=== PATIENT | male | born 1930 | race Caucasian/White ===

== ENCOUNTER 2018-02-11 12:07 | Emergency (ER) | payer OTHER ==
[~2018-02-11] VITALS: Ht 175.3 cm; Wt 77.1 kg
--- NOTE | 2018-02-11 12:45 | ED INFLUENZA/URI COMPLAINT ---
History of Present Illness General Chief Complaint: General Adult Stated Complaint: DIAGNOIS WITH FLU AND PNEUMONIA SOB URI Source: patient, family, old records Exam Limitations: no limitations Vital Signs & Intake/Output Vital Signs & Intake/Output Vital Signs Date Time Temp Pulse Resp B/P B/P Pulse O2 O2 Flow FiO2 Mean Ox Delivery Rate 02/11 1351 98.0 66 20 111/55 98 Room Air 02/11 1239 98.1 66 20 119/58 95 Room Air Allergies Coded Allergies: NO KNOWN ALLERGIES (07/19/12) Triage Note: PT TO ER S/P RECENT D/C FROM [facility] W/ HX OF ASP PNA AND PARAINFLUENZA. SYMPTOMS CONTINUE. ON AUGMENTIN. Triage Nurses Notes Reviewed? yes HPI: 87M PMH esophagitis with stricture status post dilation, Helicobacter pylori, skin cancer and hiatal hernia, discharged one day ago from [facility] after being treated for pneumonia, returns today because he has worsened since his discharge. Reports dyspnea with minimal exertion, productive cough with thick green sputum, malaise, weakness. He has chronic diarrhea for years which is unchanged. He denies fever or chills, but was diaphoretic last night. He denies headache, sore throat, sinus congestion, chest pain, dysuria. He was discharged on antibiotics but is unsure of which ones. He has never smoked. Past History Travel History Traveled to [place] past 21 day No Medical History Any Pertinent Medical History? see below for history Respiratory: pneumonia Gastrointestinal: CHRONIC DIARRHEA Cancer(s): SKIN CANCER BLOOD CANCER Influenza Vaccine: 07/18/12 Surgical History Surgical History: non-contributory Psychosocial History Who do you live with Spouse Services at Home None What is your primary language Singaporean Tobacco Use: Quit >30 days ago Family History Hx Contributory? No Review of Systems Review of Systems Constitutional: Reports: no symptoms. EENTM: Reports: no symptoms. Respiratory: Reports: no symptoms. Cardiovascular: Reports: no symptoms. GI: Reports: no symptoms. Genitourinary: Reports: no symptoms. Musculoskeletal: Reports: no symptoms. Skin: Reports: no symptoms. Neurological/Psychological: Reports: no symptoms. Hematologic/Endocrine: Reports: no symptoms. Immunologic/Allergic: Reports: no symptoms. All Other Systems: Reviewed and Negative Physical Exam Physical Exam General Appearance: well developed/nourished, mild distress Head: atraumatic, normal appearance Eyes: Bilateral: normal appearance. Ears, Nose, Throat: moist mucous membrane, hearing grossly normal Neck: normal inspection, supple, full range of motion Respiratory: bilateral rhonchi, L>R Cardiovascular: regular rate/rhythm Gastrointestinal: soft, non-tender Back: normal inspection, normal range of motion Extremities: normal inspection, normal range of motion Neurologic/Psych: awake, alert, oriented x 3, normal mood/affect Skin: intact, normal color, warm/dry Core Measures Sepsis Present: No Sepsis Focused Exam Completed? No Progress Differential Diagnosis: influenza, meningitis, neutropenia, otitis, pneumonia, pharyngitis, sinusitis Plan of Care: Orders Procedure Date/time Status RAPID VIRAL INFLUENZA A 02/11 1245 Complete COMPREHENSIVE METABOLIC PANEL 02/11 1245 Complete CBC WITHOUT DIFFERENTIAL 02/11 1245 Complete EKG 02/11 1211 Active Laboratory Tests 02/11/18 1307: Anion Gap 11, Estimated GFR 48 L, BUN/Creatinine Ratio 17.9, Glucose 96, Calcium 8.5, Total Bilirubin 0.4, AST 13 L, ALT 28, Alkaline Phosphatase 85, Total Protein 5.5 L, Albumin 2.7 L, Globulin 2.8, Albumin/Globulin Ratio 1.0 L, CBC w Diff NO MAN DIFF REQ, RBC 2.79 L, MCV 93.5, MCH 31.0, MCHC 33.2, RDW 15.9 H, MPV 7.9, Gran % 74.5, Lymphocytes % 15.6 L, Monocytes % 7.7, Eosinophils % 1.9, Basophils % 0.3, Absolute Granulocytes 4.7, Absolute Lymphocytes 1.0 L, Absolute Monocytes 0.5, Absolute Eosinophils 0.1, Absolute Basophils 0 Microbiology 02/11 1301 NASOPHARYN: Influenza Virus A & B Rapid Smear - COMP Diagnostic Imaging: Viewed by Me: Radiology Read. Discussed w/RAD: Radiology Read. Radiology Impression: PATIENT: KELLIE ISAACS PRESENT AGE: 87 PATIENT ACCOUNT NO: [id number] : [birth year] LOCATION: [facility] ORDERING PHYSICIAN: Geovanny Mejia MD SERVICE DATE: 02/11/18-1245 EXAM TYPE: RAD - XRY-CHEST XRAY, TWO VIEWS EXAMINATION: XR CHEST CLINICAL INFORMATION: Bilateral rhonchi, worse in left lower lobe. COMPARISON: Chest radiograph 01/04/2017. TECHNIQUE: 2 views of the chest were obtained. FINDINGS: Minimal patchy opacity in the left lung base. The lungs are otherwise clear. No pleural effusion. Cardiomediastinal silhouette and pulmonary vasculature are within normal limits. There are atherosclerotic changes of the thoracic aorta and degenerative changes of the visualized spine. IMPRESSION: Minimal patchy left lung base airspace opacity, nonspecific. May represent mild atelectasis or early infiltrate. Correlate clinically. DICTATED BY: Aroldo Kulkarni MD DATE/TIME DICTATED:1442 ARBOREAL SCIENTIST:AISSATOU DATE/TIME TRANSCRIBED:02/11/181442 CONFIDENTIAL, DO NOT COPY WITHOUT APPROPRIATE AUTHORIZATION. <Electronically signed in Other Vendor System> SIGNED BY: Aroldo Kulkarni MD 02/11/18 3501 Initial ED EKG: normal sinus rhythm, no ST T wave changes Departure Departure Disposition: HOME OR SELF CARE Condition: Stable Clinical Impression Primary Impression: Pneumonia Referrals: Wei GAO,Teja Calderón (PCP/Family) Additional Instructions: Follow up with your PCP. Drink plenty of water. Finish taking the antibiotics that you were prescribed on discharge. If any new or worsneing symptoms, return to ER. Departure Forms: Customer Survey General Discharge Information
[2018-02-11 13:15] LABS: ABSOLUTE BASOPHIL COUNT 0 /CUMM (0.0-0.2); ABSOLUTE EOSINOPHIL COUNT 0.1 /CUMM (0.0-0.7); ABSOLUTE GRANULOCYTE CT 4.7 /CUMM (1.4-6.5); ABSOLUTE MONOCYTE COUNT 0.5 /CUMM (0.10-0.60); BASOPHIL % 0.3 % (0.0-2.0); EOSINOPHIL % 1.9 % (0-5); GRANULOCYTE % 74.5 % (42.2-75.2); HEMATOCRIT 26.1 % (42-52); MEAN CORPUSCULAR HGB CONC 33.2 G/DL (33.0-37.0); MEAN CORPUSCULAR VOLUME 93.5 FL (80.0-94.0); MEAN PLATELET VOLUME 7.9 FL (7.4-10.4); PLATELET COUNT 149 /CUMM (130-400); RBC DISTRIBUTION WIDTH 15.9 % (11.5-14.5); RED BLOOD CELL CT 2.79 /CUMM (4.70-6.10); WHITE BLOOD CELL COUNT 6.3 /CUMM (4.8-10.8)
--- NOTE | 2018-02-11 14:49 | RADIOLOGY REPORT ---
EXAMINATION: XR CHEST CLINICAL INFORMATION: Bilateral rhonchi, worse in left lower lobe. COMPARISON: Chest radiograph 01/04/2017. TECHNIQUE: 2 views of the chest were obtained. FINDINGS: Minimal patchy opacity in the left lung base. The lungs are otherwise clear. No pleural effusion. Cardiomediastinal silhouette and pulmonary vasculature are within normal limits. There are atherosclerotic changes of the thoracic aorta and degenerative changes of the visualized spine. IMPRESSION: Minimal patchy left lung base airspace opacity, nonspecific. May represent mild atelectasis or early infiltrate. Correlate clinically.
[2018-02-11 16:14] VITALS: BP 132/61
[2018-06-29] MEDS ORDERED: DOCUSATE SODIU100 M3 PO (08:38)
[2018-06-29] MEDS ORDERED: AZITHROMYCIN500 M3 PO ×2 (10:40→14:09)
== END 2018-02-11 16:16 ==
LOC: ERH 12:07
PROVIDERS: Internal Medicine
DX: J18.9 Pneumonia, unspecified organism (principal); Z87.891 Personal history of nicotine dependence
CPT/HCPCS: 71046; 87804; 87804-59; 93005; 93010

== ENCOUNTER 2018-05-11 15:39 | Inpatient (IN) | payer OTHER ==
[~2018-05-11] VITALS: Ht 167.6 cm; Wt 79.8 kg
[2018-05-11 16:23] LABS: ABSOLUTE BASOPHIL COUNT 0 /CUMM (0.0-0.2); ABSOLUTE EOSINOPHIL COUNT 0.1 /CUMM (0.0-0.7); ABSOLUTE MONOCYTE COUNT 0.3 /CUMM (0.10-0.60); BASOPHIL % 0.3 % (0.0-2.0); EOSINOPHIL % 1.4 % (0-5); GRANULOCYTE % 74.5 % (42.2-75.2); HEMATOCRIT 29.8 % (42-52); MEAN CORPUSCULAR HGB CONC 34.2 G/DL (33.0-37.0); MEAN CORPUSCULAR VOLUME 90.6 FL (80.0-94.0); MEAN PLATELET VOLUME 8.4 FL (7.4-10.4); PLATELET COUNT 173 /CUMM (130-400); RBC DISTRIBUTION WIDTH 14.4 % (11.5-14.5); RED BLOOD CELL CT 3.29 /CUMM (4.70-6.10); WHITE BLOOD CELL COUNT 5.4 /CUMM (4.8-10.8)
--- NOTE | 2018-05-11 17:10 | RADIOLOGY REPORT ---
EXAMINATION: XR PORTABLE CHEST CLINICAL INFORMATION: Fever. COMPARISON: Chest x-ray 02/11/2018 TECHNIQUE: Portable frontal view of the chest was obtained. 4:15 PM FINDINGS: There is bibasilar hazy and patchy airspace disease that is new since prior exam. Airspace disease is worse at the left lung base than the right. Lung volume is low. No significant central pulmonary vascular congestion allowing for the low inspiration. IMPRESSION: Bibasilar airspace disease, greater on the left than the right.
--- NOTE | 2018-05-11 17:43 | History & Physical ---
General Information and HPI Allergies/Medications Allergies: Coded Allergies: NSAIDS (Non-Steroidal Anti-Inflamma (PER PT DAUGHTER BAD KIDNEY 05/11/18) Past History Travel History Traveled to [place] past 21 day No Medical History Respiratory: pneumonia Gastrointestinal: CHRONIC DIARRHEA Cancer(s): SKIN CANCER BLOOD CANCER Surgical History Surgical History: non-contributory Past Family/Social History Psychosocial History Services at Home: None Core Measures/Misc (07/03) Sepsis (View protocol) If YES complete Sepsis Event Note If YES complete Sepsis Event Note
--- NOTE | 2018-05-11 17:54 | ED AMS/SEIZURE/WEAK/DIZZY ---
History of Present Illness General Chief Complaint: Nausea, Vomiting, Diarrhea Stated Complaint: BIBA WITH NAUSEA AND VOMITING Source: patient, family, old records Exam Limitations: clinical condition Vital Signs & Intake/Output Vital Signs & Intake/Output Vital Signs Date Time Temp Pulse Resp B/P B/P Pulse O2 O2 Flow FiO2 Mean Ox Delivery Rate 05/13 0000 93 Room Air 05/13 0000 97.9 60 18 108/50 93 Room Air 05/12 2000 Room Air 05/12 1600 98 Room Air 05/12 1600 97.0 66 19 110/58 98 Room Air 05/12 1200 97.5 78 18 100/46 98 Room Air 05/12 1036 Room Air Room Air ED Intake and Output 05/13 0000 05/12 1200 Intake Total 1662 Output Total 1075 200 Balance 587 -200 Intake, Blood 377 Product Intake, IV 325 Intake, Oral 960 Number 1 Bowel Movements Output, Urine 1075 200 Patient 176 lb Weight Weight Bed scale Measurement Method Allergies Coded Allergies: NSAIDS (Non-Steroidal Anti-Inflamma (PER PT DAUGHTER BAD KIDNEY 05/11/18) Triage Note: PT BIBA FROM HOME FOR N/V FOR 4 HOURS. FAMILY STATES HE HAS BEEN WEAK AND A POOR APPETITE FOR A MONTH. PT ARRIVES ALERT AND ORIENTED. DENIES PAIN, STATES HE FEELS COLD. SKIN HOT TO THE TOUCH. MOUTH IS VERY DRY. PT DOES NOT APPEAR TO BE IN RESPIRTORY DISTRESS Triage Nurses Notes Reviewed? yes Onset: Abrupt Duration: day(s): Timing: recent history HPI: 79-year-old male comes into the emergency room with nausea vomiting fever and increased weakness going on the last couple days. Patient lives at home with his daughter. He is been unable to ambulate. History of pneumonia and UTIs. Denies any pain. Denies any shortness of breath. Nothing seems to make the symptoms better or worse. Comes in for further evaluation. (Santos Malloy) Reconcile Medications Acetaminophen 500 MG TABLET 2 TAB PO QPM PAIN (Reported) Albuterol Sulfate (Proair Hfa) 90 MCG HFA.AER.AD 2 PUF INH Q6H PRN RESP. ( Reported) Furosemide (Lasix) 40 MG TABLET 1 TAB PO QAM DIURETIC (Reported) Loperamide HCl (Loperamide) 2 MG CAPSULE 1 CAP PO Q6 PRN DIARRHEA (Reported) Mirtazapine 7.5 MG TABLET 0.5 TAB PO QPM UNKNOWN (Reported) Pantoprazole Sodium 40 MG TABLET.DR 1 TAB PO DAILY GI (Reported) Potassium Chloride 10 MEQ TAB.ER.PRT 1 TAB PO DAILY SUPPLEMENT (Reported) Prednisone 10 MG TABLET 1 TAB PO QAM STEROID (Reported) Tamsulosin HCl (Flomax) 0.4 MG CAP.ER.24H 1 CAP PO QPM (Reported) (Ale GAO,[facility]) Past History Travel History Traveled to [place] past 21 day No Medical History Any Pertinent Medical History? see below for history Respiratory: pneumonia Gastrointestinal: CHRONIC DIARRHEA Cancer(s): SKIN CANCER BLOOD CANCER Surgical History Surgical History: non-contributory Psychosocial History Who do you live with Spouse Services at Home None What is your primary language Mongolian Tobacco Use: Never used Family History Hx Contributory? No (Santos Malloy) Review of Systems Review of Systems Constitutional: Reports: see HPI. EENTM: Reports: no symptoms. Respiratory: Reports: see HPI. Cardiovascular: Reports: no symptoms. GI: Reports: see HPI. Genitourinary: Reports: see HPI. Musculoskeletal: Reports: no symptoms. Skin: Reports: no symptoms. Neurological/Psychological: Reports: no symptoms. Hematologic/Endocrine: Reports: no symptoms. Immunologic/Allergic: Reports: no symptoms. All Other Systems: Reviewed and Negative (Santos Malloy) Physical Exam Physical Exam General Appearance: alert, moderate distress Head: atraumatic Eyes: Bilateral: normal appearance. Ears, Nose, Throat: normal ENT inspection, hearing grossly normal Neck: normal inspection Respiratory: no respiratory distress Cardiovascular: regular rate/rhythm, tachycardia Gastrointestinal: soft Back: decreased range of motion Extremities: no edema Neurologic/Psych: awake, alert Skin: intact Core Measures ACS in differential dx? No CVA/TIA Diagnosis No Sepsis Present: Yes Sepsis Focused Exam Completed? Yes (Santos Malloy) ED Sepsis Exam Date of Focused Sepsis Exam: 05/11/18 Time of Focused Sepsis Exam: 1700 Sepsis Cardiac Exam: Tachycardia Sepsis Resp Exam: CTA Sepsis Cap Refill Exam: <2 Sec Sepsis Peripheral Pulse Exam: Normal Sepsis Peripheral Pulse Location: Radial Sepsis Skin Color Exam: Normal for Ethnicity Skin Temp/Moisture Exam: Warm/Dry (Santos Malloy) Progress Differential Diagnosis: anemia, dehydration, postural hypotension, sepsis, UTI/ pyelo, cholecystitis, cholangitis, Plan of Care: Orders Procedure Date/time Status ICU LAB BUNDLE 05/13 0500 Complete CBC WITHOUT DIFFERENTIAL 05/13 0500 Complete Regular Diet 05/12 L Active BLOOD PRODUCT PICKUP 05/12 1539 Active LEUKOCYTE POOR (PACKED CELLS) 05/12 1451 Active CBC WITHOUT DIFFERENTIAL 05/12 1300 Complete RT: Evaluation 05/12 1034 Active Wound Care/Dressing 05/12 0858 Active THERAPIST ORDERS 05/12 UNK Complete Therapeutic Activities 05/12 UNK Complete PT EVAL LOW COMPLEX 20 MIN 05/12 UNK Complete Gait Training 05/12 UNK Complete Lab Add-on Test 05/12 UNK Active PHARMACY COMMUNICATION FORM 05/12 UNK Active Current Medications Sig/Hilton Start time Last Medication Dose Stop Time Status Admin Magnesium Sulfate 1 GM Q2H 05/13 0700 AC (Mag Sulfate in D5) 05/13 0959 Dextrose/Water 100 ML (D5W) Potassium Chloride 10 MEQ ONCE ONE 05/13 0700 CAN 05/13 0701 Azithromycin 500 MG 1800 05/12 1800 CAN (Zithromax) Sodium Chloride 250 ML (Normal Saline 0.9%) Azithromycin 500 MG 1800 05/12 1800 AC 05/12 (Zithromax) 1919 Ceftriaxone Sodium 1,000 MG 1800 05/12 1800 AC 05/12 (Rocephin) 1919 Hydrocortisone 50 MG Q8 05/12 1400 AC 05/13 Sodium Succinate 0534 (Solucortef) Ceftriaxone Sodium 1,000 MG DAILY 05/12 1040 CAN (Rocephin) Acetaminophen 1,000 MG Q6P PRN 05/11 2359 AC (Ofirmev) Heparin Sodium 5,000 UNIT Q8 05/11 2200 AC 05/13 (Porcine) 0536 Acetaminophen 650 MG Q6P PRN 05/11 1915 AC 05/12 (Tylenol) 0128 Laboratory Tests 05/13/18 0445: Anion Gap 10, Estimated GFR 52 L, Glucose 147 H, Calcium 8.9, Phosphorus 4.7 H, Magnesium 1.5 L, Total Bilirubin 0.2, AST 14 L, ALT 28, Albumin 2.4 L, CBC w Diff NO MAN DIFF REQ, RBC 2.64 L, MCV 91.3, MCH 30.4, MCHC 33.3, RDW 14.5, MPV 9.0, Gran % 75.2, Lymphocytes % 19.4 L, Monocytes % 5.1, Eosinophils % 0.1, Basophils % 0.2, Absolute Granulocytes 4.6, Absolute Lymphocytes 1.2, Absolute Monocytes 0.3, Absolute Eosinophils 0, Absolute Basophils 0 05/12/18 1340: CBC w Diff NO MAN DIFF REQ, RBC 2.41 L, MCV 91.1, MCH 31.0, MCHC 34.1, RDW 14.3 , MPV 8.3, Gran % 85.1 H, Lymphocytes % 11.8 L, Monocytes % 2.6, Eosinophils % 0.2, Basophils % 0.3, Absolute Granulocytes 5.8, Absolute Lymphocytes 0.8 L, Absolute Monocytes 0.2, Absolute Eosinophils 0, Absolute Basophils 0 Diagnostic Imaging: Viewed by Me: Radiology Read. Discussed w/RAD: Radiology Read. Radiology Impression: PATIENT: KELLIE ISAACS PRESENT AGE: 87 PATIENT ACCOUNT NO: [id number] : [birth year] LOCATION: [facility] ORDERING PHYSICIAN: Santos BAKER SERVICE DATE: 05/11/18 EXAM TYPE: RAD - XRY-PORTABLE CHEST XRAY EXAMINATION: XR PORTABLE CHEST CLINICAL INFORMATION: Fever. COMPARISON: Chest x-ray 02/11/2018 TECHNIQUE: Portable frontal view of the chest was obtained. 4:15 PM FINDINGS: There is bibasilar hazy and patchy airspace disease that is new since prior exam. Airspace disease is worse at the left lung base than the right. Lung volume is low. No significant central pulmonary vascular congestion allowing for the low inspiration. IMPRESSION: Bibasilar airspace disease, greater on the left than the right. DICTATED BY: Mono Sweeney MD DATE/TIME DICTATED:05/11/181704 ADVERTISING OPERATIONS MANAGER:AISSATOU DATE/TIME TRANSCRIBED:05/11/181704 CONFIDENTIAL, DO NOT COPY WITHOUT APPROPRIATE AUTHORIZATION. <Electronically signed in Other Vendor System> SIGNED BY: Mono Sweeney MD 05/11/181709 Initial ED EKG: normal sinus rhythm, rate (125), RBBB, nonspecific ST T wave chg (Santos Malloy) Departure Departure Disposition: STILL A PATIENT Condition: Stable Clinical Impression Primary Impression: Sepsis Secondary Impressions: Bilateral pneumonia, UTI (urinary tract infection) Referrals: Ely Arenas MD (PCP/Family) Departure Forms: Customer Survey General Discharge Information Admission Note Spoke With: Jarrett GAO,Balbir Documentation of Exam: Documentation of any treatments & extenuating circumstances including Concerns Regarding Discharge (functional status, medication knowledge or non-compliance, living conditions, etc.) that warrant an admission rather than observation: Patient will require IV antibiotics. IV fluids. Repeat labs. Medically not safe for discharge. (Santos Malloy) PA/ROD FILLER Co-Sign Statement Statement: ED Attending supervision documentation- [] I saw and evaluated the patient. I have also reviewed all the pertinent lab results and diagnostic results. I agree with the findings and the plan of care as documented in the PA's/ROD FILLER's documentation. [x] I have reviewed the ED Record and agree with the PA's/ROD FILLER's documentation. [] Additions or exceptions (if any) to the PAs/ROD FILLER's note and plan are summarized below: [] (Ale GAO,Vincent) Critical Care Note Critical Care Note Critical Care Time: 30-74 min (45) (Santos Malloy)
--- NOTE | 2018-05-11 17:59 | CT SCAN REPORT ---
EXAMINATION: CT ABDOMEN AND PELVIS WITHOUT CONTRAST CLINICAL INFORMATION: Abdominal pain. Evaluate for cholecystitis. Fever. White stool. COMPARISON: 08/01/2016 TECHNIQUE: Multidetector volumetric imaging was performed from the superior aspect of the liver through the pubic symphysis. Sagittal and coronal reformatted images were obtained on the technologist's workstation. DLP: 390 mGy-cm FINDINGS: LUNG BASES: Chronic subpleural reticular opacity in lung bases. New patchy groundglass opacity and consolidation within lower lobes, consistent with pneumonia. Patchy centrilobular groundglass opacity also observed within the middle lobe and inferior lingula. No pleural effusion. Chronically enlarged retrocrural lymph nodes are seen. Within the visualized lower mediastinum, largest right-sided para-aortic lymph node located posterior to the distal esophagus is 2 cm AP dimension, unchanged in size compared to 08/01/2016. LIVER, GALLBLADDER, AND BILIARY TREE: Liver has normal size, contour and attenuation. At the lateral aspect of hepatic segment 2, there is a 1.4 cm area that has low attenuation within the range of water, suggestive of cyst. No suspicious hepatic lesion or intrahepatic bile duct dilatation. Gallbladder is unremarkable. PANCREAS: No focal lesions within the atrophied pancreas. No pancreatic ductal dilatation. SPLEEN: Unremarkable. ADRENAL GLANDS: Unremarkable. KIDNEYS, URETERS AND BLADDER: Moderate right hydroureteronephrosis with perinephric and periureteral edema. The right ureteral stent is in satisfactory position with proximal loop located in the renal pelvis and distal loop within the urinary bladder. Gas is present in the lumen of the bladder, right ureter and renal pelvis. This could be secondary to recent placement of the ureteral stent. However, infection of the urinary tract is not excluded. No right ureteral calculus. Small, 0.3 cm calculus within the upper pole of the right kidney. Few cortical cysts of the right kidney, largest measuring up to 4.3 cm. There are clustered cysts (or single, septated cyst) at the mid to upper pole of the left kidney. Several calyceal stones of the left kidney, largest of the lower pole measuring up to 0.6 cm. The left ureter is grossly unremarkable. Within the bladder, there appears to be some faintly visible calcification around the tip of the ureteral stent. GASTROINTESTINAL TRACT: Stomach is unremarkable. The fluid-filled duodenum and proximal jejunum is dilated up to 6 cm diameter. This represents a chronic finding, not appreciably changed compared to 08/01/2016. Otherwise, small and large bowel are normal in caliber. Colonic diverticulosis without diverticulitis. No abdominal abscess, ascites or pneumoperitoneum. ABDOMINAL WALL: Small fat-containing umbilical hernia. LYMPH NODES: Chronically enlarged retrocrural lymph nodes (as noted above). Multiple small lymph nodes are seen in the retroperitoneum, largest measuring up to 1 cm short axis dimension, unchanged compared to 08/01/2016. Also, there are multiple small lymph nodes of the iliac chains. No enlarging lymph nodes compared to 08/01/2016. VASCULAR: Atherosclerosis of abdominal aorta without aneurysm. PELVIC VISCERA: Prostate gland is mildly enlarged. No pelvic free fluid. 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 No aggressive osseous lesions. IMPRESSION: 1. Multilobar pneumonia in the visualized lung bases; no pleural effusion. 2. Chronic, stable lymphadenopathy in the retrocrural region of the lower chest. Also, mild, shotty lymphadenopathy in the abdomen and pelvis remains unchanged compared to 08/01/2016. 3. Colonic diverticulosis without diverticulitis. 4. The duodenum and proximal jejunum are chronically dilated; the lack of any significant interval change compared to 08/01/2016 suggests that this is likely a chronic, asymptomatic finding. 5. Moderate right hydroureteronephrosis with perinephric and periureteral edema. Gas is seen within the right renal pelvis, ureter and bladder. Urinary tract infection is not excluded on this test. Recommend correlation with regards to the chronicity of the right hydronephrosis and the date of stent insertion. Small nonobstructing bilateral renal calculi are seen.
--- NOTE | 2018-05-11 18:06 | History & Physical ---
Ej Stafford 05/11/18 1805: General Information and HPI MD Statement: I have seen and personally examined KELLIE VINCENT and documented this H&P. The patient is a 87 year old M who presented with a patient stated chief complaint of [high fever + chills]. Source of Information: patient Exam Limitations: poor historian History of Present Illness: Mr. Vincent is in 87-year-old male with a past medical history of esophagitis with strictures, H pylori, melanoma, Commerce Rao's macroglobulinemia, hiatal hernia who presents today with a fever of 104.0. Patient denies complaints, poor historian. States to talk to his daughter for most of history. Per patient around 11 AM, he was sitting on the toilet bowl when he experienced diarrhea, nonbloody, and began having chills and felt weak. Patient states that his son- in-law picked him up off the toilet, and carried him into his living room, where they called EMS. Patient denied any other complaints today. Patient does recently admit to a 30 pound weight loss, per daughter/chart review 60 pound weight loss over 5 months. States that he was recently in the [facility] and discharged 2 weeks ago for lower extremity swelling. States that he had seen a application security architect/oncologist in the past but does not remember what for. States that most of his doctors are at the [facility] now. Does deny blurred vision, syncope, falls , chest pain, abdominal pain, nausea, vomiting, urinary symptoms, current lower extremity edema. Past medical history: Esophagitis with strictures, H pylori, melanoma, Waldenstr Allergies: Denies Social history: States significant smoking history "back in the service" reminisced about buying a carton of cigarettes for $2, and states that he has quit. States he drinks a beer every once in a while. Denies any illicit drug use. Is a of the [employer]. 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 Review of systems Positive for: 60 pound weight loss over the past 5 months, diarrhea, weakness, chills Negative for: Dizziness, falls, blurred vision, chest pain, palpitations, abdominal pain, nausea, vomiting, urinary symptoms, lower extremity edema Allergies/Medications Allergies: Coded Allergies: NSAIDS (Non-Steroidal Anti-Inflamma (PER PT DAUGHTER BAD KIDNEY 05/11/18) Past History Travel History Traveled to [place] past 21 day No Medical History Respiratory: pneumonia Gastrointestinal: CHRONIC DIARRHEA Cancer(s): SKIN CANCER BLOOD CANCER Surgical History Surgical History: non-contributory Past Family/Social History Psychosocial History Services at Home: None Functional Ability Ambulation: independent, cane (when outside house) Review of Systems Review of Systems Constitutional: Reports: see HPI. Exam & Diagnostic Data Last 24 Hrs of Vital Signs/I&O Vital Signs Date Time Temp Pulse Resp B/P B/P Pulse O2 O2 Flow FiO2 Mean Ox Delivery Rate 05/11 2003 100.7 95 20 92/54 95 Room Air Room Air 05/11 1904 102.2 94 18 104/52 95 Room Air Room Air 05/11 1703 103 18 108/47 94 Room Air Room Air 05/11 1657 103.5 05/11 1630 104.0 05/11 1630 94 Room Air Room Air 05/11 1610 120 20 148/80 94 Room Air Room Air Physical Exam General Appearance Alert, Oriented X3, Cooperative, No Acute Distress Skin 2x2cm lesion L cheek, 2x2cm lesion L chest wall present for "few months", chronic venous changes, b/l LE Skin Temp/Moisture Exam: Warm/Dry Sepsis Skin Exam (color): Normal for Ethnicity Cardiovascular Regular Rate, Normal S1, Normal S2 Lungs crackles, b/l lower lobes Abdomen Soft, No Tenderness, hiatal hernia, neg cva/suprapubic tenderness Neurological Normal Speech, Strength at 5/5 X4 Ext, Sensation Intact Extremities No Edema Vascular Normal Pulses Sepsis Peripheral Pulse Location: Dorsalis Pedis Sepsis Peripheral Pulse Exam: Normal Sepsis Cap Refill Exam: <2 Sec Assessment/Plan Assessment: Mr. Vincent is in 87-year-old male with a past medical history of esophagitis with strictures, H pylori, melanoma, Commerce Rao's macroglobulinemia, hiatal hernia who presents today with a fever of 104.0 and diarrhea. Admitted to ICU for Sepsis 2/2 Multilobar Pneumonia (fever, hypotension, tachycardia) #Sepsis -Admit to ICU for unstable BP despite fluid bolus in ED. -Repeat fluid bolus, maintain MAP >65. Can give pressors if no response -Broad ABX coverage. On Ceftaz, Azithro. Given lesions on cheek and chest, will give one dose of Vanco and survey for MRSA -MRSA nasal screen -Panculture - blood, urine, respiratory, skin, stool; C.diff toxin -Trend Lactate; 16:00 was 1.9 -AM Echo #Multilobar Pneumonia -Found on CT A/P -Recieved 1 dose of Ceftriaxone, Azithro in ED. Currently on Ceftaz, Vanco, Azithromycin for broader antibiotic coverage given unstable blood pressure -CT Chest noncontrast when stable given CT findings and CXR -Sputum cultures, Blood Cultures -O2, TRC as needed #?Pyelonephritis -has non-obstructing renal calculi -Obtain UCX -Urology consult for hydronephrosis #VELMA -Baseline creatinine of 1.1; currently 1.6 -Trend BEP -IVF hydration #Waldenstrom Macroglobulinemia -Will obtain Heme/Onc consult #Melanoma/L cheek L chest wall lesion -Will get skin culture -[facility] -Wound care consultation for Dressing recommendations for the lesions on his skin and check. DVT PPx IV access Heart Healthy Diet DNR/DNI Dispo As Ranked By This Provider Problem List: 1. Bilateral pneumonia 2. Sepsis Core Measures/Misc (07/03) Acute Coronary Syndrome ACS Diagnosis: No Congestive Heart Failure Congestive Heart Failure Diagnosis No Cerebrovascular Accident CVA/TIA Diagnosis: No VTE (View Protocol) VTE Risk Factors Age>40 No Mechanical VTE Prophylaxis d/t N/A MechProphylax Ordered No VTE Pharm Prophylaxis d/t NA PharmProphylax ordered Sepsis (View protocol) Sepsis Present: Yes (see sepsis note) If YES complete Sepsis Event Note If YES complete Sepsis Event Note Chelsea Ontiveros 05/11/18 1838: Core Measures/Misc (07/03) Sepsis (View protocol) If YES complete Sepsis Event Note If YES complete Sepsis Event Note Resident Review Statement Resident Statement: examined this patient, discussed with internal medicine hospitalist, agreed with internal medicine hospitalist, discussed with family, reviewed EMR data (avail), discussed with nursing , discussed with case mgmt, reviewed images, amended to note Other Findings: Mr. Vincent is a 87yo M w/ PMH of Waldenstrom Macroglobinemia on Prednisone 10mg qd, HFpEF (last echo 06/2012), melanoma on cheek from recent biopsy, and recently diagnosed early stage of dementia, presented from home to ER for N/V, fever, increased weakness x 1 days. -Baselines: ambulated freely at home -Work: retired banker, former served in [employer] Per daughter, patient was seen in [facility] mostly in the past two year, with remote visit to Dr. Tavarez for Wal[place]rom macroglobulinemia, and was only placed on prednisone 10mg by [facility] for the past 2 years. She also stated that patient had lost 50-60lbs in the last 5 months, with chronic diarrhea for almost a year. She would like a consult from Dr. Tavarez if possible During our clinical interaction, patient was being a poor historian, however denied recent travel/sick contacts, lightheadedness/diaphoresis/night sweat/ cough/SOB/Chest Pain/Palpitation/Abdominal pain/bowel movement or urinary abnormality, or other skin/musculoskeletal/neurological/mood disorders, or dietary/appetite change. -Smoking: Former remote smoker -Alcohol: rare -Rec Drugs: denied On admission, Vitals: Tmax 103.5->104, HR 120->103, RR 20, BP 148/80->108/47, 94% O2 RA Physical exam as above -CBC: No leukocytosis, WBC 5.4, H/H 10.2/29.8, at baseline, PLT 173, -BMP: Unremarkable except elevated creatinine 1.6, not at baseline, lactic acid 1.9 -UA/Microbiology: Positive for leukoesterase/WBC/hemoglobin, no previous positive microbiology -CXR: Bibasilar airspace disease, greater on the left than the right. -Ab CT 1. Multilobar pneumonia in the visualized lung bases; no pleural effusion. 2. Chronic, stable lymphadenopathy in the retrocrural region of the lower chest. Also, mild, shotty lymphadenopathy in the abdomen and pelvis remains unchanged compared to 08/01/2016. 3. Colonic diverticulosis without diverticulitis. 4. The duodenum and proximal jejunum are chronically dilated; the lack of any significant interval change compared to 08/01/2016 suggests that this is likely a chronic, asymptomatic finding. 5. Moderate right hydroureteronephrosis with perinephric and periureteral edema. Gas is seen within the right renal pelvis, ureter and bladder. Urinary tract infection is not excluded on this test. Recommend correlation with regards to the chronicity of the right hydronephrosis and the date of stent insertion. Small nonobstructing bilateral renal calculi are seen. -EKG: Sinus tachycardia w/o significant ST-T abnormalities. -Last Echo 06/2012: Stage 1 diastolic dysfunction, EF >60% -Interventions in ER: NS Bolus x 3, Ceftriaxone/Azithromycin x 1 Problem list/Assessment/Hospital Course: #Sepsis 2/2 CAP/Pyelonephritis #Community acquired PNA multilobar #Pyelonephritis?? w/ non-obstructing bilateral non-obstructing renal calculi #VELMA 2/2 dehydration #PMH of HFpEF, waldenstrom macroglobulinemia, Melanoma on cheek/chest - Admit to General Medicine, however as patient's BP dropped to 92/54, would transfer to ICU for close monitor of vitals and possible septic shock/need of pressor through central lines. - Vitals per protocol, monitor I&O per protocol. - Patient had skin biopsy for melanoma with foul-appearing lesion on cheek and chest. Would gave one dose of Vancomycin IV and will survellence for MRSA. - Would now broaden the coverage to Ceftazdime/Vanco/Azithromycin pending cultures. - Pending [place] cultures including blood/urine/sputum/wound/stool/nasal surveillence/C.diff - O2/TRC neb if needed - PT/OT as needed - Continuous IVF - Continue home meds including prednisone 10mg qd. - Pending Echo in the AM - Pending Chest CT w/o Contrast once patient's vitals are more stable. - Pending Hemonc/Urology consult in the AM - Family updated regarding ICU transfer. Meds confirmed. - Pain per pathway DVT prophylaxis Heparin SC + ALPS Heart Healthy Diet IV Access: Peripheral IV DNR/DNI Balbir Farias MD 05/11/182010: General Information and HPI Allergies/Medications Home Med list Acetaminophen 500 MG TABLET 2 TAB PO QPM PAIN (Reported) Albuterol Sulfate (Proair Hfa) 90 MCG HFA.AER.AD 2 PUF INH Q6H PRN RESP. ( Reported) Furosemide (Lasix) 40 MG TABLET 1 TAB PO QAM DIURETIC (Reported) Loperamide HCl (Loperamide) 2 MG CAPSULE 1 CAP PO Q6 PRN DIARRHEA (Reported) Mirtazapine 7.5 MG TABLET 0.5 TAB PO QPM UNKNOWN (Reported) Pantoprazole Sodium 40 MG TABLET.DR 1 TAB PO DAILY GI (Reported) Potassium Chloride 10 MEQ TAB.ER.PRT 1 TAB PO DAILY SUPPLEMENT (Reported) Prednisone 10 MG TABLET 1 TAB PO QAM STEROID (Reported) Tamsulosin HCl (Flomax) 0.4 MG CAP.ER.24H 1 CAP PO QPM (Reported) Core Measures/Misc (07/03) Sepsis (View protocol) If YES complete Sepsis Event Note If YES complete Sepsis Event Note Attending MD Review Statement Attending Statement Attending MD Statement: examined this patient, discuss w/resident/PA/[employer] DRIVER, agreed w/resident/PA/[employer] DRIVER, reviewed EMR data (avail), discussed with nursing, discussed with case mgmt, amended to note Attending Assessment/Plan: 87-year-old male with history of BPH, COPD, melanoma presents to the emergency room with complaints of malaise and chills. Emergency room found to be hypotensive. Found to have evidence of bilateral pneumonia on imaging. Patient denies any respiratory symptoms of shortness of breath, cough or chest pain. He was maintaining saturation on room air. Also noted on labs evidence of acute kidney injury with history of the abdomen showing right-sided hydronephrosis. She was started on fluid boluses for his hypertension and IV Rocephin/ azithromycin and referred to medical service for further management. Past medical hydration with 3 L of fluid in the ER blood pressure remains in the 90s systolic. Patient is febrile. always a very poor historian he is alert and oriented 3. Not in any respiratory distress. Heart sounds are regular with a 2/6 systolic murmur. He has bibasilar crackles in lung bases. Abdomen is soft and nontender. He does have bilateral lower extremity edema. Problems: 1. Sepsis; secondary to bilateral pneumonia and possible right-sided pyelonephritis. 2. Melanoma on the left cheek and left chest wall currently with foul-smelling discharge. 3. Acute kidney injury 4. Right-sided hydronephrosis. Plan: -Admit to inpatient medical service. -Despite fluid boluses, blood pressure remains low currently in the 90s. Recommend admitting to the intensive care unit for more aggressive management. Repeat fluid bolus, if unable to maintain map greater than 65 recommend initiation of vasopressor therapy. -Obtain echocardiogram in the a.m. -Patient has radiologic evidence of pneumonia on chest x-ray and CT abdomen although he denies any respiratory symptoms. Will recommend CT scan of the chest without IV contrast for further evaluation of opacities noted on imaging once patient is more clinically stable. -Broaden antibiotic coverage. Begin patient on IV vancomycin, ceftazidime and continue azithromycin. -Performed MRSA nasal screen, obtain blood cultures and obtain urine cultures. -Urology consultation for evaluation of his hydronephrosis. -Wound care consultation for Dressing recommendations for the lesions on his skin and check. -DVT prophylaxis with heparin subcu.
[2018-05-11] MEDS ORDERED: PANTOPRAZOLE SO40 M1 PO (18:57)
[2018-05-11] MEDS ORDERED: LASIX40 M1 PO (18:58)
[2018-05-11] MEDS ORDERED: LOPERAMIDE2 M2 PO (18:58)
[2018-05-11] MEDS ORDERED: POTASSIUM CHLO10 ME5 PO (18:58)
[2018-05-11] MEDS ORDERED: FLOMAX0.4 M1 PO (18:58)
[2018-05-11] MEDS ORDERED: MIRTAZAPINE7.5 M1 PO (18:59)
[2018-05-11] MEDS ORDERED: PREDNISONE10 M2 PO (19:00)
[2018-05-11] MEDS ORDERED: PROAIR HFA8.5 GM INH (19:01)
[2018-05-11] MEDS ORDERED: ACETAMINOPHEN500 M4 PO (19:02)
--- NOTE | 2018-05-11 19:23 | Sepsis Event Note ---
Sepsis Event Note Severe Sepsis Severe Sepsis Present: No Septic Shock Septic Shock Present: No Event Note Event Note: On Presentation, patient's clinical signs align with sepsis criteria with: -T-max: 104.0 -HR:103 -RR:20 -Leukocytosis/Leukopenia/Bands: None -Suspected source of infection based on HPI and CXR: Multilobar PNA + possible Pyelonephritis -BP: 148/80 -> 92/54 -Lactic Acidosis: 1.9 -Interventions in ER: NS Bolus x 3, Ceftriaxone/Azithromycin Will admit to inpatient ICU as patient's blood pressure was not holding well w/ NS bolus x 3, will monitor in ICU for now, add 1 more bag of IVF bolus, and with low threshold for pressor if needed. Please refer to A/P for details. Sepsis Focused Exam Sepsis Cardiac Exam: Tachycardia Sepsis Resp Exam: CTA Sepsis Cap Refill Exam: <2 Sec Sepsis Peripheral Pulse Exam: Normal Sepsis Peripheral Pulse Location: Dorsalis Pedis Sepsis Skin Exam (color): Normal for Ethnicity Skin Temp/Moisture Exam: Warm/Dry
--- NOTE | 2018-05-11 20:10 | Admission Certification ---
Admission Certification Certification Statement - As attending physician, I certify that at the time of - admission, based on clinical presentation, severity of - symptoms, need for further diagnostic testing and - therapeutic interventions, and risk of adverse outcomes - without in-hospital treatment, in my clinical assessment, - this patient requires an acute hospital stay for a minimum - of two nights or longer. I have also considered psychsocial - factors such as support system, advanced age, financial - issues, cognitive issues, and failed out-patient treatments, - past re-admission history, safety of patient, and lack of - compliance as applicable. Specific rationale supporting this admission is: Patient requires hospitalization for management of his sepsis
[2018-05-12 05:35] LABS: ABSOLUTE BASOPHIL COUNT 0 /CUMM (0.0-0.2); ABSOLUTE EOSINOPHIL COUNT 0.1 /CUMM (0.0-0.7); ABSOLUTE MONOCYTE COUNT 0.5 /CUMM (0.10-0.60); BASOPHIL % 0.2 % (0.0-2.0); EOSINOPHIL % 1.5 % (0-5); MEAN CORPUSCULAR HGB CONC 33.7 G/DL (33.0-37.0)
[2018-05-12 05:54] LABS: ABSOLUTE GRANULOCYTE CT 5.9 /CUMM (1.4-6.5); GRANULOCYTE % 69.2 % (42.2-75.2); MEAN PLATELET VOLUME 8.6 FL (7.4-10.4); PLATELET COUNT 111 /CUMM (130-400); RBC DISTRIBUTION WIDTH 14.3 % (11.5-14.5)
[2018-05-12 06:01] LABS: WHITE BLOOD CELL COUNT 8.6 /CUMM (4.8-10.8)
[2018-05-12 06:07] LABS: HEMATOCRIT 21.4 % (42-52)
[2018-05-12 06:08] LABS: RED BLOOD CELL CT 2.33 /CUMM (4.70-6.10)
--- NOTE | 2018-05-12 07:32 | Cons- Urology ---
General Information and HPI Consulting Request Date of Consult: 05/12/18 Requested By: Balbir Farias MD Reason for Consult: Indwelling R ureteral stent and air in R renal pelvis, R ureter and bladder Source of Information: patient, old records Exam Limitations: no limitations History of Present Illness: 87 year old male admitted with multilobar pneumonia with fever. On CT of abd and pelvis he is seen to have a R ureteral stent in place with some air in the R renal pelvis, R ureter and bladder. He denies any gross hematuria or R flank pain. He states that in the past he had R ureteroscopy and laser litho of a R ureteral stone at the [facility]. A R ureteral stent was left in place after the procedure. He did not f/u with urology there. Allergies/Medications Allergies: Coded Allergies: NSAIDS (Non-Steroidal Anti-Inflamma (PER PT DAUGHTER BAD KIDNEY 05/11/18) Home Med List: Acetaminophen 500 MG TABLET 2 TAB PO QPM PAIN (Reported) Albuterol Sulfate (Proair Hfa) 90 MCG HFA.AER.AD 2 PUF INH Q6H PRN RESP. ( Reported) Furosemide (Lasix) 40 MG TABLET 1 TAB PO QAM DIURETIC (Reported) Loperamide HCl (Loperamide) 2 MG CAPSULE 1 CAP PO Q6 PRN DIARRHEA (Reported) Mirtazapine 7.5 MG TABLET 0.5 TAB PO QPM UNKNOWN (Reported) Pantoprazole Sodium 40 MG TABLET.DR 1 TAB PO DAILY GI (Reported) Potassium Chloride 10 MEQ TAB.ER.PRT 1 TAB PO DAILY SUPPLEMENT (Reported) Prednisone 10 MG TABLET 1 TAB PO QAM STEROID (Reported) Tamsulosin HCl (Flomax) 0.4 MG CAP.ER.24H 1 CAP PO QPM (Reported) Past History Medical History Respiratory: pneumonia Gastrointestinal: CHRONIC DIARRHEA Cancer(s): SKIN CANCER BLOOD CANCER Surgical History Pertinent Surgical History: non-contributory Psychosocial History Services at Home: None Functional Ability Ambulation: independent, cane (when outside house) Exam & Diagnostic Data Vital Signs and I&O Vital Signs Date Time Temp Pulse Resp B/P B/P Pulse O2 O2 Flow FiO2 Mean Ox Delivery Rate 05/12 0440 97.6 79 22 114/71 93 Room Air 05/11 2348 98.9 97 18 104/52 97 05/11 2312 100.1 90 18 101/51 95 Room Air Room Air 05/11 2203 100.3 91 18 97/54 95 Room Air Room Air 05/11 2003 100.7 95 20 92/54 95 Room Air Room Air 05/11 1904 102.2 94 18 104/52 95 Room Air Room Air 05/11 1703 103 18 108/47 94 Room Air Room Air 05/11 1657 103.5 05/11 1630 104.0 05/11 1630 94 Room Air Room Air 05/11 1610 120 20 148/80 94 Room Air Room Air Intake & Output 05/12 0805/12 0000 05/11 1600 05/11 0800 05/11 0000 05/10 1600 Intake Total 4000 Output Total 200 650 Balance -200 3350 Intake, IV 4000 Output, Urine 200 650 Patient 160 lb Weight Back: No CVA tenderness Abd: soft and non tender Genitalia: normal male Laboratory Tests 05/12 05/11 0515 1857 Chemistry Sodium (137 - 145 mmol/L) 142 Potassium (3.5 - 5.1 mmol/L) 3.8 Chloride (98 - 107 mmol/L) 116 H Carbon Dioxide (22 - 30 mmol/L) 16 L Anion Gap (5 - 16) 11 BUN (9 - 20 mg/dL) 41 H Creatinine (0.7 - 1.2 mg/dL) 1.3 H Estimated GFR (>60 ml/min) 52 L BUN/Creatinine Ratio (7 - 25 %) 31.5 H Lactic Acid Cancelled Hematology CBC w Diff NO MAN DIFF REQ WBC (4.8 - 10.8 /CUMM) 8.6 RBC (4.70 - 6.10 /CUMM) 2.33 L Hgb (14.0 - 18.0 G/DL) 7.2 *L Hct (42 - 52 %) 21.4 L MCV (80.0 - 94.0 FL) 92.0 MCH (27.0 - 31.0 PG) 31.0 MCHC (33.0 - 37.0 G/DL) 33.7 RDW (11.5 - 14.5 %) 14.3 Plt Count (130 - 400 /CUMM) 111 L MPV (7.4 - 10.4 FL) 8.6 Gran % (42.2 - 75.2 %) 69.2 Lymphocytes % (20.5 - 51.1 %) 23.6 Monocytes % (1.7 - 9.3 %) 5.5 Eosinophils % (0 - 5 %) 1.5 Basophils % (0.0 - 2.0 %) 0.2 Absolute Granulocytes (1.4 - 6.5 /CUMM) 5.9 Absolute Lymphocytes (1.2 - 3.4 /CUMM) 2.0 Absolute Monocytes (0.10 - 0.60 /CUMM) 0.5 Absolute Eosinophils (0.0 - 0.7 /CUMM) 0.1 Absolute Basophils (0.0 - 0.2 /CUMM) 0 05/11 05/11 1642 1600 Chemistry Sodium (137 - 145 mmol/L) 140 Potassium (3.5 - 5.1 mmol/L) 4.3 Chloride (98 - 107 mmol/L) 104 Carbon Dioxide (22 - 30 mmol/L) 21 L Anion Gap (5 - 16) 15 BUN (9 - 20 mg/dL) 48 H Creatinine (0.7 - 1.2 mg/dL) 1.6 H Estimated GFR (>60 ml/min) 41 L BUN/Creatinine Ratio (7 - 25 %) 30.0 H Glucose (65 - 99 mg/dL) 126 H Lactic Acid (0.7 - 2.1 mmol/L) 1.9 Calcium (8.4 - 10.2 mg/dL) 8.7 Total Bilirubin (0.2 - 1.3 mg/dL) 0.5 AST (17 - 59 U/L) 20 ALT (21 - 72 U/L) 32 Alkaline Phosphatase (< 127 U/L) 95 Troponin I (<0.11 ng/ml) < 0.01 Total Protein (6.3 - 8.2 g/dL) 6.7 Albumin (3.5 - 5.0 g/dL) 3.4 L Globulin (1.9 - 4.2 gm/dL) 3.3 Albumin/Globulin Ratio (1.1 - 2.2 %) 1.0 L Hematology CBC w Diff NO MAN DIFF REQ WBC (4.8 - 10.8 /CUMM) 5.4 RBC (4.70 - 6.10 /CUMM) 3.29 L Hgb (14.0 - 18.0 G/DL) 10.2 L Hct (42 - 52 %) 29.8 L MCV (80.0 - 94.0 FL) 90.6 MCH (27.0 - 31.0 PG) 31.0 MCHC (33.0 - 37.0 G/DL) 34.2 RDW (11.5 - 14.5 %) 14.4 Plt Count (130 - 400 /CUMM) 173 MPV (7.4 - 10.4 FL) 8.4 Gran % (42.2 - 75.2 %) 74.5 Lymphocytes % (20.5 - 51.1 %) 19.1 L Monocytes % (1.7 - 9.3 %) 4.7 Eosinophils % (0 - 5 %) 1.4 Basophils % (0.0 - 2.0 %) 0.3 Absolute Granulocytes (1.4 - 6.5 /CUMM) 4.0 Absolute Lymphocytes (1.2 - 3.4 /CUMM) 1.0 L Absolute Monocytes (0.10 - 0.60 /CUMM) 0.3 Absolute Eosinophils (0.0 - 0.7 /CUMM) 0.1 Absolute Basophils (0.0 - 0.2 /CUMM) 0 Urines Urinalysis LIGHT H Urine Color (YEL,AMB,STR) STRAW Urine Clarity (CLEAR) HAZY H Urine pH (5.0 - 8.0) 6.0 Ur Specific [place] (1.001 - 1.035) 1.025 Urine Protein (NEG,<30 MG/DL) 100 H Urine Ketones (NEG) NEG Urine Nitrite (NEG) NEG Urine Bilirubin (NEG) NEG Urine Urobilinogen (0.1 - 1.0 EU/dl) 1.0 Ur Leukocyte Esterase (NEG) LARGE H Ur Microscopic SEDIMENT EXAMINED Urine RBC (0 - 5 /HPF) 1-3 Urine WBC (0 - 2 /HPF) > 75 H Ur Epithelial Cells (NONE,FEW) MOD H Urine Hemoglobin (NEG) LARGE H Urine Glucose (N MG/DL) NEG Assessment/Plan Assessment/Plan Imp: 1. Hx of R ureteral stone treated at [facility] 2. Indwelling R ureteral stent with air in R renal pelvis, R ureter and bladder. Potential causes of this are UTI, recent instrumentation (no hx of this according to patient) and fistual (no evidence on CT scan) Plan: 1. Would f/u urine culture and treat accordingly with abx. Agree with ceftriaxone for now 2. Upon discharge he should have appointment with Urology department at the [facility]. Consult Acknowledgment - Thank you for your consult request.
--- NOTE | 2018-05-12 07:47 | Cons- CRCU ---
[facility] 05[facility]12[facility] 0746: General Information and HPI Consulting Request Source of Information: patient, old records Exam Limitations: no limitations History of Present Illness: Mr. 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 The patient states that yesterday he started experiencing loose non-bloody bowel movements after which subsequently he started experiencing fevers and weakness. He endorses a 30 pound weight loss over the past few months. States that [facility] and discharged 2 weeks ago for lower extremity swelling. He has seen a government sales manager/oncologist in the past but does not remember why. On admission, he was found to be septic with imaging showing multilobar pneumonia. His UA was suggestive UTI with GNR on his urine culture though he currently does not complain of any urinary symptoms. He was transferred to the ICU due to concerns of low blood pressure. Allergies/Medications Allergies: Coded Allergies: NSAIDS (Non-Steroidal Anti-Inflamma (PER PT DAUGHTER BAD KIDNEY 05/11/18) Home Med List: Acetaminophen 500 MG TABLET 2 TAB PO QPM PAIN (Reported) Albuterol Sulfate (Proair Hfa) 90 MCG HFA.AER.AD 2 PUF INH Q6H PRN RESP. ( Reported) Furosemide (Lasix) 40 MG TABLET 1 TAB PO QAM DIURETIC (Reported) Loperamide HCl (Loperamide) 2 MG CAPSULE 1 CAP PO Q6 PRN DIARRHEA (Reported) Mirtazapine 7.5 MG TABLET 0.5 TAB PO QPM UNKNOWN (Reported) Pantoprazole Sodium 40 MG TABLET.DR 1 TAB PO DAILY GI (Reported) Potassium Chloride 10 MEQ TAB.ER.PRT 1 TAB PO DAILY SUPPLEMENT (Reported) Prednisone 10 MG TABLET 1 TAB PO QAM STEROID (Reported) Tamsulosin HCl (Flomax) 0.4 MG CAP.ER.24H 1 CAP PO QPM (Reported) Review of Systems Review of Systems Constitutional: Reports: chills, fever. EENTM: Reports: no symptoms. Cardiovascular: Denies: chest pain, palpitations. Respiratory: Reports: cough. Denies: short of breath. GI: Reports: no symptoms. Genitourinary: Denies: dysuria, pain. Musculoskeletal: Reports: no symptoms. Skin: Reports: no symptoms. Neurological/Psychological: Reports: no symptoms. Past History Travel History Traveled to [place] past 21 day No Medical History Blood Disorders: Waldenstorm Macroglobinemia Cancer(s): SKIN CANCER BLOOD CANCER Surgical History Surgical History: non-contributory Psychosocial History Services at Home: None Functional Ability Ambulation: independent, cane (when outside house) Exam & Diagnostic Data Last 24 Hrs of Vital Signs/I&O Vital Signs Date Time Temp Pulse Resp B/P B/P Pulse O2 O2 Flow FiO2 Mean Ox Delivery Rate 05/12 0800 98.1 74 20 120/60 98 Room Air 05/12 0740 97 Room Air 05/12 0440 97.6 79 22 114/71 93 Room Air 05/11 2348 98.9 97 18 104/52 97 05/11 2312 100.1 90 18 101/51 95 Room Air Room Air 05/11 2203 100.3 91 18 97/54 95 Room Air Room Air 05/11 2003 100.7 95 20 92/54 95 Room Air Room Air 05/11 1904 102.2 94 18 104/52 95 Room Air Room Air 05/11 1703 103 18 108/47 94 Room Air Room Air 05/11 1657 103.5 05/11 1630 104.0 05/11 1630 94 Room Air Room Air 05/11 1610 120 20 148/80 94 Room Air Room Air Intake & Output 05/12 1600 05/12 0800 05/12 0000 Intake Total 4000 Output Total 200 650 Balance -200 3350 Intake, IV 4000 Output, Urine 200 650 Patient 176 lb 160 lb Weight Weight Bed scale Measurement Method Physical Exam General Appearance: well developed/nourished, no apparent distress, alert, awake , comfortable Head: atraumatic, normal appearance Eyes: Bilateral: normal appearance. Respiratory: normal breath sounds, chest non-tender, bibasilar crackles Cardiovascular: regular rate/rhythm Gastrointestinal: soft, non-tender Extremities: no edema, stasis venous changes in b/l LE Neurologic/Psych: awake, alert, oriented x 3 Cranial Nerves: normal hearing, normal speech Skin: intact, normal color, warm/dry Last 48 Hrs of Labs/Oswaldo: Laboratory Tests 05/12/18 0745: PT 14.9 H, INR 1.36 H, APTT 27 05/12/18 0515: Anion Gap 11, Estimated GFR 52 L, BUN/Creatinine Ratio 31.5 H, CBC w Diff NO MAN DIFF REQ, RBC 2.33 L, MCV 92.0, MCH 31.0, MCHC 33.7, RDW 14.3, MPV 8.6, Gran % 69.2, Lymphocytes % 23.6, Monocytes % 5.5, Eosinophils % 1.5, Basophils % 0.2, Absolute Granulocytes 5.9, Absolute Lymphocytes 2.0, Absolute Monocytes 0.5 , Absolute Eosinophils 0.1, Absolute Basophils 0 05/11/18 1857: Lactic Acid Cancelled 05/11/181641: Urinalysis LIGHT H, Urine Color STRAW, Urine Clarity HAZY H, Urine pH 6.0, Ur Specific [place] 1.025, Urine Protein 100 H, Urine Ketones NEG, Urine Nitrite NEG, Urine Bilirubin NEG, Urine Urobilinogen 1.0, Ur Leukocyte Esterase LARGE H , Ur Microscopic SEDIMENT EXAMINED, Urine RBC 1-3, Urine WBC > 75 H, Ur Epithelial Cells MOD H, Urine Hemoglobin LARGE H, Urine Glucose NEG 05/11/18 1600: Anion Gap 15, Estimated GFR 41 L, BUN/Creatinine Ratio 30.0 H, Glucose 126 H, Lactic Acid 1.9, Calcium 8.7, Total Bilirubin 0.5, AST 20, ALT 32, Alkaline Phosphatase 95, Troponin I < 0.01, Total Protein 6.7, Albumin 3.4 L, Globulin 3.3, Albumin/Globulin Ratio 1.0 L, CBC w Diff NO MAN DIFF REQ, RBC 3.29 L, MCV 90.6, MCH 31.0, MCHC 34.2, RDW 14.4, MPV 8.4, Gran % 74.5, Lymphocytes % 19.1 L , Monocytes % 4.7, Eosinophils % 1.4, Basophils % 0.3, Absolute Granulocytes 4.0 , Absolute Lymphocytes 1.0 L, Absolute Monocytes 0.3, Absolute Eosinophils 0.1, Absolute Basophils 0 Microbiology 05/11 1642 URINE ROUT: Legionella Antigen - COMP 05/11 1642 URINE ROUT: Streptococcus pneumoniae Antigen (M - COMP Assessment/Plan CRCU Impression/Plan: Mr. 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 Assessment: 1. Sepsis - Fever, tachycardia with pneumonia and urine as source of infection 2. Multilobar Pneumonia 3. Urinary Tract Infection 4. VELMA 5. Moderate Right Hydronephrosis 6. History of Waldenstrom Macroglobulinemia Plan: * Continue monitoring in the ICU for now. * Discontinue IV Vancomycin and Ceftazidime * Switch to IV Ceftriaxone 1g daily. Continue Azithromycin but will switch to PO. * Follow up blood cultures * Urine culture is growing GNR. Await C&S * Sputum culture if able to provide a sample * Trend Renal Function * Currently on NS @ 125ml/hr. Would not continue IVF after current bag as patient is tolerating oral diet well. His Cr has improved from yesterday. * Stress dose steroids with IV hydrocortisone 50mg q8. * Repeat CBC in the afternoon. If his Hb < 8, would transfuse * Type and Screen * Diet: Regular * DVT Prophylaxis: SC Heparin * Code Status: DNR/DNI Consult Acknowledgment - Thank you for your consult request. Sarahy GAO,[facility] 05/12/18 0822: General Information and HPI Consulting Request Date of Consult: 05/12/18 Requested By: Dr. Farias Reason for Consult: CRCU management Allergies/Medications Current Medications: Current Medications Sig/Hilton Start time Last Medication Dose Route Stop Time Status Admin Acetaminophen 0 .STK-MED ONE 05/12 0125 DC PO Acetaminophen 1,000 MG Q6P PRN 05/11 2359 AC IV Acetaminophen 650 MG Q6P PRN 05/11 1915 AC 05/12 PO 0128 Acetaminophen 0 .STK-MED ONE 05/11 1625 DC IV Azithromycin 500 MG 1800 05/12 1800 AC Sodium Chloride 250 ML IV Azithromycin 500 MG ONCE ONE 05/11 1730 DC 05/11 Sodium Chloride 250 ML IV 05/11 1829 1911 Ceftazidime 0 .STK-MED ONE 05/12 0037 DC .ROUTE Ceftazidime 1,000 MG Q24 05/11 2115 AC 05/12 IV 0039 Ceftriaxone Sodium 1,000 MG 1800 05/12 1800 CAN IV Ceftriaxone Sodium 0 .STK-MED ONE 05/11 1853 DC .ROUTE Ceftriaxone Sodium 1,000 MG ONCE ONE 05/11 1730 DC 05/11 IV 05/11 173 1911 Heparin Sodium 5,000 UNIT Q8 05/11 2200 AC 05/12 (Porcine) SC 0643 Hydrocortisone 50 MG Q6 05/12 1200 AC Sodium Succinate IV Hydrocortisone 100 MG ONE ONE 05/12 0715 DC 05/12 Sodium Succinate IV 05/12 0716 0755 Sodium Chloride 1,000 ML BOLUS ONE 05/11 2000 DC 05/11 IV 05/11 Sodium Chloride 1,000 ML .Q8H 05/11 1915 AC 05/12 IV 05/12 1122 0310 Sodium Chloride 1,000 ML BOLUS ONE 05/11 1745 DC 05/11 IV 05/11 1844 191 Sodium Chloride 1,000 ML BOLUS ONE 05/11 1615 DC 05/11 IV 05/11 1714 1645 Sodium Chloride 1,000 ML BOLUS ONE 05/11 1600 DC 05/11 IV 05/11 1659 1633 Vancomycin HCl 1,000 MG ONCE ONE 05/11 1945 DC 05/11 Sodium Chloride 250 ML IV 05/11 2044 220 Assessment/Plan CRCU Other Findings/Comments: I have personally seen and examined the patient and agree with the housestaff's assessment and plan as detailed above. 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 The patient was evaluated in the ED and found to have evidence of sepsis secondary to a UTI and possible multilobar pneumonia. The patient was hypotensive initially, noting he responded to IVF hydration. Further evaluation showed multilobar pneumonia, VELMA and right hydronephrosis. The patient will continue being treated as per the sepsis protocol. Follow up cultures, continue broad-spectrum antibiotics. Continue aggressive IV fluid hydration. Monitor labs every 8 hours today. Continue steroids/hydrocortisone for stress dosing. DVT prophylaxis at all times. The patient is DNR/DNI. I discussed the plan of care with house staff and asked them to contact me should the patient's condition change or deteriorate. Consult Acknowledgment - Thank you for your consult request.
--- NOTE | 2018-05-12 07:56 | Cons- Hematology ---
General Information and HPI Consulting Request Date of Consult: 05/12/18 Requested By: Jarrett GAO,Balbir History of Present Illness: Mr. Swift is an 87-year-old gentleman with known Waldonstrom's macroglobulinemia being treated with prednisone 10 mg per day, now admitted with fever. Patient complained of diarrhea denies significant shortness of breath cough chest pain or hemoptysis. Allergies/Medications Allergies: Coded Allergies: NSAIDS (Non-Steroidal Anti-Inflamma (PER PT DAUGHTER BAD KIDNEY 05/11/18) Home Med List: Acetaminophen 500 MG TABLET 2 TAB PO QPM PAIN (Reported) Albuterol Sulfate (Proair Hfa) 90 MCG HFA.AER.AD 2 PUF INH Q6H PRN RESP. ( Reported) Furosemide (Lasix) 40 MG TABLET 1 TAB PO QAM DIURETIC (Reported) Loperamide HCl (Loperamide) 2 MG CAPSULE 1 CAP PO Q6 PRN DIARRHEA (Reported) Mirtazapine 7.5 MG TABLET 0.5 TAB PO QPM UNKNOWN (Reported) Pantoprazole Sodium 40 MG TABLET.DR 1 TAB PO DAILY GI (Reported) Potassium Chloride 10 MEQ TAB.ER.PRT 1 TAB PO DAILY SUPPLEMENT (Reported) Prednisone 10 MG TABLET 1 TAB PO QAM STEROID (Reported) Tamsulosin HCl (Flomax) 0.4 MG CAP.ER.24H 1 CAP PO QPM (Reported) Current Medications: Current Medications Sig/Hilton Start time Last Medication Dose Route Stop Time Status Admin Acetaminophen 0 .STK-MED ONE 05/12 0125 DC PO Acetaminophen 1,000 MG Q6P PRN 05/11 2359 AC IV Acetaminophen 650 MG Q6P PRN 05/11 1915 AC 05/12 PO 0128 Acetaminophen 0 .STK-MED ONE 05/11 1625 DC IV Azithromycin 500 MG 1800 05/12 1800 AC Sodium Chloride 250 ML IV Azithromycin 500 MG ONCE ONE 05/11 1730 DC 05/11 Sodium Chloride 250 ML IV 05/11 1829 1911 Ceftazidime 0 .STK-MED ONE 05/12 0037 DC .ROUTE Ceftazidime 1,000 MG Q24 05/11 2115 AC 05/12 IV 0039 Ceftriaxone Sodium 1,000 MG 1800 05/12 1800 CAN IV Ceftriaxone Sodium 0 .STK-MED ONE 05/11 1853 DC .ROUTE Ceftriaxone Sodium 1,000 MG ONCE ONE 05/11 1730 DC 05/11 IV 05/11 1731 1911 Heparin Sodium 5,000 UNIT Q8 05/11 2200 AC 05/12 (Porcine) SC 0643 Hydrocortisone 50 MG Q6 05/12 1200 AC Sodium Succinate IV Hydrocortisone 100 MG ONE ONE 05/12 0715 DC Sodium Succinate IV 05/12 0716 Sodium Chloride 1,000 ML BOLUS ONE 05/11 2000 DC 05/11 IV 05/119 2006 Sodium Chloride 1,000 ML .Q8H 05/11 1915 AC 05/12 IV 05/12 1122 0310 Sodium Chloride 1,000 ML BOLUS ONE 05/11 1745 DC 05/11 IV 05/11 1844 1911 Sodium Chloride 1,000 ML BOLUS ONE 05/11 1615 DC 05/11 IV 05/11 1714 1645 Sodium Chloride 1,000 ML BOLUS ONE 05/11 1600 DC 05/11 IV 05/11 1659 1633 Vancomycin HCl 1,000 MG ONCE ONE 05/11 1945 DC 05/11 Sodium Chloride 250 ML IV 05/11 2044 220 Review of Systems Review of Systems: Patient denies headaches or dizziness. Patient denies nausea vomiting abdominal pain or change in bowel habits. Patient denies dysuria or hematuria. Patient denies new bone aches or focal neurologic deficit Past History Travel History Traveled to [place] past 21 day No Medical History Respiratory: pneumonia Gastrointestinal: CHRONIC DIARRHEA Cancer(s): SKIN CANCER BLOOD CANCER Surgical History Surgical History: non-contributory Psychosocial History Services at Home: None Functional Ability Ambulation: independent, cane (when outside house) Exam & Diagnostic Data Vital Signs and I&O Vital Signs Date Time Temp Pulse Resp B/P B/P Pulse O2 O2 Flow FiO2 Mean Ox Delivery Rate 05/12 0440 97.6 79 22 114/71 93 Room Air 05/11 2348 98.9 97 18 104/52 97 05/11 2312 100.1 90 18 101/51 95 Room Air Room Air 05/11 2203 100.3 91 18 97/54 95 Room Air Room Air 05/11 2003 100.7 95 20 92/54 95 Room Air Room Air 05/11 190 102.2 94 18 104/52 95 Room Air Room Air 05/11 1703 103 18 108/47 94 Room Air Room Air 05/11 1657 103.5 05/11 1630 104.0 05/11 1630 94 Room Air Room Air 05/11 1610 120 20 148/80 94 Room Air Room Air Intake & Output 05/12 0800 05/12 0000 05/11 1600 Intake Total 4000 Output Total 200 650 Balance -200 3350 Intake, IV 4000 Output, Urine 200 650 Patient 160 lb Weight Gen.: in NAD ENT: Sclera anicteric Chest: Decreased breath sounds Cor: RRR, no extra sounds Abdomen: Soft, bowel sounds present, no tenderness, no rebound Extremities: Without clubbing, cyanosis, or asymmetric edema Neurology: Alert and oriented 3, no gross deficit Skin: No rashes Last 48 Hours of Lab Results: Laboratory Tests 05/12 05/11 0515 1857 Chemistry Sodium (137 - 145 mmol/L) 142 Potassium (3.5 - 5.1 mmol/L) 3.8 Chloride (98 - 107 mmol/L) 116 H Carbon Dioxide (22 - 30 mmol/L) 16 L Anion Gap (5 - 16) 11 BUN (9 - 20 mg/dL) 41 H Creatinine (0.7 - 1.2 mg/dL) 1.3 H Estimated GFR (>60 ml/min) 52 L BUN/Creatinine Ratio (7 - 25 %) 31.5 H Lactic Acid Cancelled Hematology CBC w Diff NO MAN DIFF REQ WBC (4.8 - 10.8 /CUMM) 8.6 RBC (4.70 - 6.10 /CUMM) 2.33 L Hgb (14.0 - 18.0 G/DL) 7.2 *L Hct (42 - 52 %) 21.4 L MCV (80.0 - 94.0 FL) 92.0 MCH (27.0 - 31.0 PG) 31.0 MCHC (33.0 - 37.0 G/DL) 33.7 RDW (11.5 - 14.5 %) 14.3 Plt Count (130 - 400 /CUMM) 111 L MPV (7.4 - 10.4 FL) 8.6 Gran % (42.2 - 75.2 %) 69.2 Lymphocytes % (20.5 - 51.1 %) 23.6 Monocytes % (1.7 - 9.3 %) 5.5 Eosinophils % (0 - 5 %) 1.5 Basophils % (0.0 - 2.0 %) 0.2 Absolute Granulocytes (1.4 - 6.5 /CUMM) 5.9 Absolute Lymphocytes (1.2 - 3.4 /CUMM) 2.0 Absolute Monocytes (0.10 - 0.60 /CUMM) 0.5 Absolute Eosinophils (0.0 - 0.7 /CUMM) 0.1 Absolute Basophils (0.0 - 0.2 /CUMM) 0 05/11 05/11 1642 1600 Chemistry Sodium (137 - 145 mmol/L) 140 Potassium (3.5 - 5.1 mmol/L) 4.3 Chloride (98 - 107 mmol/L) 104 Carbon Dioxide (22 - 30 mmol/L) 21 L Anion Gap (5 - 16) 15 BUN (9 - 20 mg/dL) 48 H Creatinine (0.7 - 1.2 mg/dL) 1.6 H Estimated GFR (>60 ml/min) 41 L BUN/Creatinine Ratio (7 - 25 %) 30.0 H Glucose (65 - 99 mg/dL) 126 H Lactic Acid (0.7 - 2.1 mmol/L) 1.9 Calcium (8.4 - 10.2 mg/dL) 8.7 Total Bilirubin (0.2 - 1.3 mg/dL) 0.5 AST (17 - 59 U/L) 20 ALT (21 - 72 U/L) 32 Alkaline Phosphatase (< 127 U/L) 95 Troponin I (<0.11 ng/ml) < 0.01 Total Protein (6.3 - 8.2 g/dL) 6.7 Albumin (3.5 - 5.0 g/dL) 3.4 L Globulin (1.9 - 4.2 gm/dL) 3.3 Albumin/Globulin Ratio (1.1 - 2.2 %) 1.0 L Hematology CBC w Diff NO MAN DIFF REQ WBC (4.8 - 10.8 /CUMM) 5.4 RBC (4.70 - 6.10 /CUMM) 3.29 L Hgb (14.0 - 18.0 G/DL) 10.2 L Hct (42 - 52 %) 29.8 L MCV (80.0 - 94.0 FL) 90.6 MCH (27.0 - 31.0 PG) 31.0 MCHC (33.0 - 37.0 G/DL) 34.2 RDW (11.5 - 14.5 %) 14.4 Plt Count (130 - 400 /CUMM) 173 MPV (7.4 - 10.4 FL) 8.4 Gran % (42.2 - 75.2 %) 74.5 Lymphocytes % (20.5 - 51.1 %) 19.1 L Monocytes % (1.7 - 9.3 %) 4.7 Eosinophils % (0 - 5 %) 1.4 Basophils % (0.0 - 2.0 %) 0.3 Absolute Granulocytes (1.4 - 6.5 /CUMM) 4.0 Absolute Lymphocytes (1.2 - 3.4 /CUMM) 1.0 L Absolute Monocytes (0.10 - 0.60 /CUMM) 0.3 Absolute Eosinophils (0.0 - 0.7 /CUMM) 0.1 Absolute Basophils (0.0 - 0.2 /CUMM) 0 Urines Urinalysis LIGHT H Urine Color (YEL,AMB,STR) STRAW Urine Clarity (CLEAR) HAZY H Urine pH (5.0 - 8.0) 6.0 Ur Specific [place] (1.001 - 1.035) 1.025 Urine Protein (NEG,<30 MG/DL) 100 H Urine Ketones (NEG) NEG Urine Nitrite (NEG) NEG Urine Bilirubin (NEG) NEG Urine Urobilinogen (0.1 - 1.0 EU/dl) 1.0 Ur Leukocyte Esterase (NEG) LARGE H Ur Microscopic SEDIMENT EXAMINED Urine RBC (0 - 5 /HPF) 1-3 Urine WBC (0 - 2 /HPF) > 75 H Ur Epithelial Cells (NONE,FEW) MOD H Urine Hemoglobin (NEG) LARGE H Urine Glucose (N MG/DL) NEG Imaging/Other Studies: EH-xvavu-fremg pneumonia, stable lymphadenopathy, mild hydronephrosis on the right Assessment/Plan Assessment: 1. Waldenstrm's macroglobulinemia-patient's hematocrit on admission was 29 but after fluid resuscitation marked decrease was observed. This does suggest an element of dilution. CAT scan shows stable findings of lymphadenopathy. Recommend- Repeat CBC Keep hematocrit greater than 25% by transfusion Check stools for occult blood Check direct [place] test despite normal bilirubin [facility] 2. Sepsis/pneumonia-patient appears stable on broad-spectrum antibiotics. Patient has been on chronic steroids, prednisone 10 mg per day. Recommend- Antibiotics Consider stress dose steroids for short course with resumption of chronic prednisone Recommendations: .. Consult Acknowledgment - Thank you for your consult request.
[2018-05-12 08:00] VITALS: BP 120/60
[2018-05-12 08:39] LABS: PT 14.9 SEC (9.4-12.5); PTT 27 SEC (25-37)
[2018-05-12 12:00] VITALS: BP 100/46
[2018-05-12 13:59] LABS: ABSOLUTE BASOPHIL COUNT 0 /CUMM (0.0-0.2); ABSOLUTE EOSINOPHIL COUNT 0 /CUMM (0.0-0.7); ABSOLUTE GRANULOCYTE CT 5.8 /CUMM (1.4-6.5); ABSOLUTE LYMPH COUNT 0.8 /CUMM (1.2-3.4); ABSOLUTE MONOCYTE COUNT 0.2 /CUMM (0.10-0.60); BASOPHIL % 0.3 % (0.0-2.0); EOSINOPHIL % 0.2 % (0-5); GRANULOCYTE % 85.1 % (42.2-75.2); HEMATOCRIT 21.9 % (42-52); MEAN CORPUSCULAR HGB CONC 34.1 G/DL (33.0-37.0); MEAN CORPUSCULAR VOLUME 91.1 FL (80.0-94.0); MEAN PLATELET VOLUME 8.3 FL (7.4-10.4); PLATELET COUNT 114 /CUMM (130-400); RBC DISTRIBUTION WIDTH 14.3 % (11.5-14.5); RED BLOOD CELL CT 2.41 /CUMM (4.70-6.10); WHITE BLOOD CELL COUNT 6.8 /CUMM (4.8-10.8)
--- NOTE | 2018-05-12 15:30 | ECHOCARDIOGRAM REPORT ---
KELLIE ISAACS Age: 87 : 1930 Gender: M Exam Date: 05/12/2018 10:59 Exam Location: [facility] Ht (in): 67 Wt (lb): 160 BSA: 1.86 BP: 112 / 46 Ordering Physician: Chelsea Ontiveros MD Referring Physician: Chelsea Ontiveros MD Technologist: Steve Johnson JOHN Room Number: 111 Indications: lightheadedness Rhythm: Sinus Technical Quality: Good FINDINGS Left Ventricle Normal left ventricular size, wall thickness and systolic function with no obvious regional wall motion abnormalities. Normal left ventricular diastolic filling pattern for age. The ejection fraction is visually estimated at >65 %. Right Ventricle The right ventricle is normal in size and function. Right Atrium The right atrium is normal in size. Left Atrium Mild left atrial dilatation. The interatrial septum is intact. Mitral Valve Mild thickening/calcification of the mitral valve leaflets. Mild mitral annular calcification. Trace to mild mitral regurgitation. Aortic Valve Diffuse thickening of the aortic valve cusps with mildly reduced excursion. Mild aortic stenosis. No aortic regurgitation. Tricuspid Valve Tricuspid valve is normal in structure and function. Trace to mild tricuspid regurgitation. Right ventricular systolic pressure estimated to be elevated at 40-45 mmHg. Pulmonic Valve Structurally normal pulmonic valve. There is no pulmonic regurgitation. Pericardium Normal pericardium without effusion. No pleural effusion. Great Vessels Normal aortic root dimension. The aortic arch and great vessels are not well seen. CONCLUSIONS Normal left ventricular size, wall thickness and systolic function with no obvious regional wall motion abnormalities. The ejection fraction is visually estimated at >65 %. Mild left atrial dilatation. Mild thickening/calcification of the mitral valve leaflets. Mild mitral annular calcification. Trace to mild mitral regurgitation. Diffuse thickening of the aortic valve cusps with mildly reduced excursion. Mild aortic stenosis. No aortic regurgitation. Right ventricular systolic pressure estimated to be elevated at 40-45 mmHg. The aortic arch and great vessels are not well seen. Teja Swift M.D. (Electronically Signed) Final Date: 12 May 2018 15:29 MEASUREMENTS (Male / Female) Normal Values 2D ECHO LV Diastolic Diameter PLAX 5.0 cm 4.2 - 5.9 / 3.9 - 5.3 cm LV Systolic Diameter PLAX 3.1 cm 2.1 - 4.0 cm LV Fractional Shortening PLAX 38.0 % 25 - 46 % LV Ejection Fraction 2D Teich 67.9 % IVS Diastolic Thickness 1.0 cm LVPW Diastolic Thickness 0.9 cm LV Relative Wall Thickness 0.4 RV Internal Dim ED PLAX 3.1 cm 1.9 - 3.8 cm LVOT Diameter 1.9 cm Aortic Root Diameter 3.0 cm LA Systolic Diameter LX 4.0 cm 3.0 - 4.0 / 2.7 - 3.8 cm LA Volume 65.0 cm 18 - 58 / 22 - 52 cm Ascending Aorta Diameter 2.9 cm IVC Diameter Expiration 2.7 cm DOPPLER AV Peak Velocity 227.0 cm/s AV Peak Gradient 20.6 mmHg AV Mean Velocity 141.0 cm/s AV Mean Gradient 10.0 mmHg AV Velocity Time Integral 51.3 cm LVOT Peak Velocity 102.0 cm/s LVOT Peak Gradient 4.2 mmHg LVOT Mean Velocity 64.1 cm/s LVOT Mean Gradient 2.0 mmHg LVOT Velocity Time Integral 24.0 cm LVOT Stroke Volume 68.0 cm AV Area Cont Eq vti 1.3 cm AV Area Cont Eq pk 1.3 cm MV Peak Velocity 132.0 cm/s MV Peak Gradient 7.0 mmHg MV Mean Velocity 91.3 cm/s MV Mean Gradient 4.0 mmHg Mitral E Point Velocity 120.0 cm/s Mitral A Point Velocity 118.0 cm/s Mitral E to A Ratio 1.0 MV PHT Velocity 144.0 cm/s MV Deceleration [place] 444.0 cm/s MV Pressure Half Time 97.3 ms MV Area PHT 2.3 cm MV Deceleration Time 243.0 ms TR Peak Velocity 304.0 cm/s TR Peak Gradient 37.0 mmHg Right Atrial Pressure 10.0 mmHg Pulmonary Artery Systolic Pressure 47.0 mmHg Right Ventricular Systolic Pressure 47.0 mmHg PV Peak Velocity 105.0 cm/s PV Peak Gradient 4.4 mmHg PV Mean Velocity 66.6 cm/s PV Mean Gradient 2.0 mmHg PV Velocity Time Integral 23.8 cm
[2018-05-12 16:00] VITALS: BP 110/58
[2018-05-13] VITALS: BP 108/50
[2018-05-13 05:38] LABS: ABSOLUTE BASOPHIL COUNT 0 /CUMM (0.0-0.2); ABSOLUTE EOSINOPHIL COUNT 0 /CUMM (0.0-0.7); ABSOLUTE GRANULOCYTE CT 4.6 /CUMM (1.4-6.5); ABSOLUTE LYMPH COUNT 1.2 /CUMM (1.2-3.4); ABSOLUTE MONOCYTE COUNT 0.3 /CUMM (0.10-0.60); BASOPHIL % 0.2 % (0.0-2.0); EOSINOPHIL % 0.1 % (0-5); GRANULOCYTE % 75.2 % (42.2-75.2); HEMATOCRIT 24.1 % (42-52); MEAN CORPUSCULAR HGB 30.4 PG (27.0-31.0); MEAN CORPUSCULAR HGB CONC 33.3 G/DL (33.0-37.0); MEAN CORPUSCULAR VOLUME 91.3 FL (80.0-94.0); PLATELET COUNT 128 /CUMM (130-400); RBC DISTRIBUTION WIDTH 14.5 % (11.5-14.5); RED BLOOD CELL CT 2.64 /CUMM (4.70-6.10); WHITE BLOOD CELL COUNT 6.1 /CUMM (4.8-10.8)
[2018-05-13 07:00] VITALS: BP 118/50
--- NOTE | 2018-05-13 08:01 | PN- Resident CRCU ---
Subjective HPI/CRCU Issues: Sepsis Pneumonia 24 Hour Events: No acute events overnight. Blood pressure has been stable. Patient feels well this morning. Has no complaints. Objective Vital Signs & I&O Last 8 Hrs of Vitals and I&O: . Exam General Appearance: well developed/nourished, no apparent distress, alert, awake Head: atraumatic, normal appearance Respiratory: normal breath sounds, chest non-tender, lungs clear Cardiovascular: bradycardia Gastrointestinal: soft, non-tender Extremities: b/l lower extremity edema (L>R) Cranial Nerves: normal hearing, normal speech Skin: intact, normal color Skin Temp/Moisture Exam: Warm/Dry Current Medications: Current Medications Sig/Hilton Start time Last Medication Dose Route Stop Time Status Admin Acetaminophen 1,000 MG Q6P PRN 05/11 2359 AC IV Acetaminophen 650 MG Q6P PRN 05/11 1915 AC 05/12 PO 0128 Azithromycin 500 MG 1800 05/12 1800 CAN Sodium Chloride 250 ML IV Azithromycin 500 MG 1800 05/12 1800 AC 05/12 PO 1919 Ceftazidime 1,000 MG Q24 05/11 2115 DC 05/12 IV 0039 Ceftriaxone Sodium 1,000 MG 1800 05/12 1800 AC 05/12 IV 1919 Ceftriaxone Sodium 1,000 MG DAILY 05/12 1040 CAN IV Furosemide 40 MG QAM 05/13 0901 AC PO Heparin Sodium 5,000 UNIT Q8 05/11 2200 AC 05/13 (Porcine) SC 0536 Hydrocortisone 50 MG Q12 05/13 2100 AC Sodium Succinate IV Hydrocortisone 50 MG Q8 05/12 1400 DC 05/13 Sodium Succinate IV 0534 Hydrocortisone 50 MG Q6 05/12 1200 DC Sodium Succinate IV Magnesium Sulfate 1 GM Q2H 05/13 0700 DC Dextrose/Water 100 ML IV 05/13 0959 Omeprazole 40 MG DAILY AC 05/13 0902 AC 05/13 PO 0918 Potassium Chloride 40 MEQ ONCE ONE 05/13 0915 DC 05/13 PO 05/13 0916 0919 Potassium Chloride 60 MEQ ONCE ONE 05/13 0745 CAN PO 05/13 0746 Potassium Chloride 10 MEQ ONCE ONE 05/13 0700 CAN IV 05/13 0701 Sodium Chloride 1,000 ML .Q8H 05/11 1915 DC 05/12 IV 05/12 1122 0310 Tamsulosin HCl 0.4 MG QPM 05/13 2100 AC PO Impression/Plan Impression/Problem List Impression: Mr. 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 Assessment: 1. Sepsis - Fever, tachycardia with pneumonia and urine as source of infection 2. Multilobar Pneumonia 3. Urinary Tract Infection 4. VELMA 5. Moderate Right Hydronephrosis 6. History of Waldenstrom Macroglobulinemia Plan: * Stable to be downgraded to telemetry. Will need to be monitored for bradycardia as his heart rate dips down to 40s during sleep. * Continue IV Ceftriaxone 1g and PO Azithromycin. * Follow up blood cultures. No growth so far. * Urine culture is growing GNR. Await C&S * Sputum culture shows light growth of GNR. * Trend Renal Function. * Reduce stress dose steroids to IV hydrocortisone 50mg q12. * s/p 1 unit pRBC on 05/12 for low H&H. * Repeat CBC in the afternoon. If his Hb < 8, would transfuse * Diet: Regular * DVT Prophylaxis: SC Heparin * Code Status: DNR/DNI Problem List: 1. Sepsis Pain Ratin Tomorrow's Labs & Rationales: CBC, ICU bundle Plan DVT/Prophylaxis: mechanical
--- NOTE | 2018-05-13 08:19 | PN- CRCU ---
Subjective HPI/Critical Care Issues: The patient is awake and alert. He reports feeling better overall. He slept well. His blood pressure is now stable. He has good urine output. There were no overnight events reported. Objective Current Medications: Current Medications Sig/Hilton Start time Last Medication Dose Route Stop Time Status Admin Acetaminophen 1,000 MG Q6P PRN 05/11 2359 AC IV Acetaminophen 650 MG Q6P PRN 05/11 1915 AC 05/12 PO 0128 Azithromycin 500 MG 1800 05/12 1800 CAN Sodium Chloride 250 ML IV Azithromycin 500 MG 1800 05/12 1800 AC 05/12 PO 1919 Ceftazidime 1,000 MG Q24 05/11 2115 DC 05/12 IV 0039 Ceftriaxone Sodium 1,000 MG 1800 05/12 1800 AC 05/12 IV 191 Ceftriaxone Sodium 1,000 MG DAILY 05/12 1040 CAN IV Heparin Sodium 5,000 UNIT Q8 05/11 2200 AC 05/13 (Porcine) SC 0536 Hydrocortisone 50 MG Q8 05/12 1400 AC 05/13 Sodium Succinate IV 0534 Hydrocortisone 50 MG Q6 05/12 1200 DC Sodium Succinate IV Magnesium Sulfate 1 GM Q2H 05/13 0700 AC Dextrose/Water 100 ML IV 05/13 0959 Potassium Chloride 60 MEQ ONCE ONE 05/13 0745 DC PO 05/13 0746 Potassium Chloride 10 MEQ ONCE ONE 05/13 0700 CAN IV 05/13 0701 Sodium Chloride 1,000 ML .Q8H 05/11 1915 DC 05/12 IV 05/12 1122 0310 Vital Signs & I&O Last 24 Hrs of Vitals and I&O: Vital Signs Date Time Temp Pulse Resp B/P B/P Pulse O2 O2 Flow FiO2 Mean Ox Delivery Rate 05/13 0000 93 Room Air 05/13 0000 97.9 60 18 108/50 93 Room Air 05/12 2000 Room Air 05/12 1600 98 Room Air 05/12 1600 97.0 66 19 110/58 98 Room Air 05/12 1200 97.5 78 18 100/46 98 Room Air 05/12 1036 Room Air Room Air Intake & Output 05/13 1600 05/13 0800 05/13 0000 Intake Total 428 Output Total 475 Balance -47 Intake, Blood 377 Product Intake, IV 51 Output, Urine 475 Physical Exam General Appearance: well developed/nourished, no apparent distress, alert, awake , comfortable Head: atraumatic, normal appearance Eyes: Bilateral: normal appearance. Respiratory: normal breath sounds, chest non-tender, bibasilar crackles Cardiovascular: regular rate/rhythm Gastrointestinal: soft, non-tender Extremities: no edema, stasis venous changes in b/l LE Neurologic/Psych: awake, alert, oriented x 3 Skin: intact, normal color, warm/dry Results Last 24 Hrs of Lab Results: Laboratory Tests 05/13/18 0445: Anion Gap 10, Estimated GFR 52 L, Glucose 147 H, Calcium 8.9, Phosphorus 4.7 H, Magnesium 1.5 L, Total Bilirubin 0.2, AST 14 L, ALT 28, Albumin 2.4 L, CBC w Diff NO MAN DIFF REQ, RBC 2.64 L, MCV 91.3, MCH 30.4, MCHC 33.3, RDW 14.5, MPV 9.0, Gran % 75.2, Lymphocytes % 19.4 L, Monocytes % 5.1, Eosinophils % 0.1, Basophils % 0.2, Absolute Granulocytes 4.6, Absolute Lymphocytes 1.2, Absolute Monocytes 0.3, Absolute Eosinophils 0, Absolute Basophils 0 05/12/18 1340: CBC w Diff NO MAN DIFF REQ, RBC 2.41 L, MCV 91.1, MCH 31.0, MCHC 34.1, RDW 14.3 , MPV 8.3, Gran % 85.1 H, Lymphocytes % 11.8 L, Monocytes % 2.6, Eosinophils % 0.2, Basophils % 0.3, Absolute Granulocytes 5.8, Absolute Lymphocytes 0.8 L, Absolute Monocytes 0.2, Absolute Eosinophils 0, Absolute Basophils 0 Impression/Plan Impression/Plan Impression/Plan: 1. Sepsis of urologic origin, urine culture positive for gram-negative rods. 2. Multilobar pneumonia on imaging, with stable respiratory status, on room air. Sputum positive for gram-negative rods as well. 3. Acute kidney injury -creatinine slowly improved with IV hydration. 4. Anemia without evidence of bleeding. Hemoglobin appears stable. 5. Moderate Right Hydronephrosis -no urologic intervention planned at present. 6. History of Waldenstrom Macroglobulinemia. 7. Mild hyperchloremia. Recommendations: * Continue IV Ceftriaxone 1g daily and PO Azithromycin. * Follow up cultures and sensitivities. * Trend renal function. * Give D5W 500 mL 1 today. * Monitor I&Os. * Encourage free water intake. * Stress dose steroids - decrease hydrocortisone 50mg to q 12. * Diet: Regular. * DVT Prophylaxis: SC Heparin. * Code Status: DNR/DNI. * Downgrade to telemetry. * Continue all supportive care.
[2018-05-13 15:39] LABS: ABSOLUTE BASOPHIL COUNT 0 /CUMM (0.0-0.2); ABSOLUTE EOSINOPHIL COUNT 0 /CUMM (0.0-0.7); ABSOLUTE GRANULOCYTE CT 4.9 /CUMM (1.4-6.5); ABSOLUTE LYMPH COUNT 1.7 /CUMM (1.2-3.4); ABSOLUTE MONOCYTE COUNT 0.5 /CUMM (0.10-0.60); BASOPHIL % 0.3 % (0.0-2.0); EOSINOPHIL % 0.5 % (0-5); GRANULOCYTE % 68.2 % (42.2-75.2); HEMATOCRIT 25.6 % (42-52); MEAN CORPUSCULAR HGB 30.9 PG (27.0-31.0); MEAN CORPUSCULAR HGB CONC 33.9 G/DL (33.0-37.0); MEAN CORPUSCULAR VOLUME 91.2 FL (80.0-94.0); MEAN PLATELET VOLUME 8.7 FL (7.4-10.4); PLATELET COUNT 144 /CUMM (130-400); RBC DISTRIBUTION WIDTH 14.5 % (11.5-14.5); RED BLOOD CELL CT 2.81 /CUMM (4.70-6.10); WHITE BLOOD CELL COUNT 7.1 /CUMM (4.8-10.8)
[2018-05-13 16:00] VITALS: BP 118/58
[2018-05-14] VITALS: BP 116/60
[2018-05-14 05:39] LABS: ABSOLUTE BASOPHIL COUNT 0 /CUMM (0.0-0.2); ABSOLUTE EOSINOPHIL COUNT 0 /CUMM (0.0-0.7); ABSOLUTE GRANULOCYTE CT 3.6 /CUMM (1.4-6.5); ABSOLUTE LYMPH COUNT 1.5 /CUMM (1.2-3.4); ABSOLUTE MONOCYTE COUNT 0.4 /CUMM (0.10-0.60); BASOPHIL % 0.2 % (0.0-2.0); EOSINOPHIL % 0.5 % (0-5); GRANULOCYTE % 64.4 % (42.2-75.2); HEMATOCRIT 24.2 % (42-52); MEAN CORPUSCULAR HGB 30.7 PG (27.0-31.0); MEAN CORPUSCULAR HGB CONC 33.7 G/DL (33.0-37.0); MEAN CORPUSCULAR VOLUME 91.1 FL (80.0-94.0); MEAN PLATELET VOLUME 8.7 FL (7.4-10.4); PLATELET COUNT 119 /CUMM (130-400); RBC DISTRIBUTION WIDTH 14.2 % (11.5-14.5); RED BLOOD CELL CT 2.66 /CUMM (4.70-6.10); WHITE BLOOD CELL COUNT 5.6 /CUMM (4.8-10.8)
[2018-05-14 06:00] VITALS: BP 118/58
[2018-05-14 08:30] VITALS: BP 120/58
--- NOTE | 2018-05-14 10:05 | PN- Resident CRCU ---
Subjective HPI/CRCU Issues: #Sepsis 2/2 Multilobar Pneumonia and Urinary Tract Infection #VELMA #Moderate Right Hydronephrosis #H/o Waldenstrom Macroglobulinemia 24 Hour Events: Pt seen and examined this am. He reports no acute complains. He is comfortably breathing on room air, BP and HR stable overnight. Objective Vital Signs & I&O Last 8 Hrs of Vitals and I&O: Laboratory Tests 05/14/18 0500: Anion Gap 11, Estimated GFR 48 L, Glucose 109 H, Calcium 8.9, Phosphorus 2.9, Magnesium 1.9, Total Bilirubin 0.2, AST 14 L, ALT 30, Albumin 2.4 L, CBC w Diff NO MAN DIFF REQ, RBC 2.66 L, MCV 91.1, MCH 30.7, MCHC 33.7, RDW 14.2, MPV 8.7, Gran % 64.4, Lymphocytes % 27.2, Monocytes % 7.7, Eosinophils % 0.5, Basophils % 0.2, Absolute Granulocytes 3.6, Absolute Lymphocytes 1.5, Absolute Monocytes 0.4, Absolute Eosinophils 0, Absolute Basophils 0 05/13/18 1415: CBC w Diff NO MAN DIFF REQ, RBC 2.81 L, MCV 91.2, MCH 30.9, MCHC 33.9, RDW 14.5 , MPV 8.7, Gran % 68.2, Lymphocytes % 23.6, Monocytes % 7.4, Eosinophils % 0.5, Basophils % 0.3, Absolute Granulocytes 4.9, Absolute Lymphocytes 1.7, Absolute Monocytes 0.5, Absolute Eosinophils 0, Absolute Basophils 0 Vital Signs Date Time Temp Pulse Resp B/P B/P Pulse O2 O2 Flow FiO2 Mean Ox Delivery Rate 05/14 0830 98.6 61 20 120/58 98 Room Air 05/14 0800 98 Room Air 05/14 0600 98.0 70 16 118/58 96 Room Air 05/14 0000 96.7 76 18 116/60 95 Room Air 05/137 97.7 88 20 112/588 05/13 1600 97.1 75 16 118/58 99 Room Air Intake & Output 05/14 1600 05/14 0800 05/14 0000 Intake Total 491 100 400 Output Total 807 408 7652 Balance -59 -800 -750 Intake, IV 11 Intake, Oral 480 100 400 Number 1 Bowel Movements Output, Urine 079 556 6777 Intake & Output 05/14 1600 Intake Total 491 Output Total 550 Balance -59 Intake, IV 11 Intake, Oral 480 Output, Urine 550 Exam General Appearance: well developed/nourished, no apparent distress, alert, awake , comfortable Head: atraumatic, normal appearance Neck: normal inspection, supple Respiratory: normal breath sounds, chest non-tender, no respiratory distress Cardiovascular: regular rate/rhythm Gastrointestinal: normal bowel sounds, soft, non-tender, no organomegaly Extremities: normal inspection, normal capillary refill, no edema Sepsis Peripheral Pulse Location: Dorsalis Pedis Sepsis Peripheral Pulse Exam: Normal Sepsis Cap Refill Exam: <2 Sec Current Medications: Current Medications Sig/Hilton Start time Last Medication Dose Route Stop Time Status Admin Acetaminophen 650 MG .STK-MED ONE 05/14 0118 DC PO 05/14 0119 Acetaminophen 1,000 MG Q6P PRN 05/11 2359 AC IV Acetaminophen 650 MG Q6P PRN 05/11 1915 AC 05/14 PO 0121 Azithromycin 500 MG 1800 05/12 1800 AC 05/13 PO 1749 Ceftriaxone Sodium 1,000 MG 1800 05/12 1800 AC 05/13 IV 1749 Furosemide 40 MG QAM 05/13 0901 AC 05/14 PO 0907 Heparin Sodium 5,000 UNIT Q8 05/11 2200 AC 05/14 (Porcine) SC 0545 Hydrocortisone 50 MG Q12 05/13 2100 AC 05/14 Sodium Succinate IV 0907 Omeprazole 40 MG DAILY AC 05/13 0902 AC 05/14 PO 0553 Tamsulosin HCl 0.4 MG QPM 05/13 2100 AC 05/13 PO 2026 Impression/Plan Impression/Problem List Impression: Mr. 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 He was transferred to the ICU for close monitoring of BP s/p episodes of hypotension. IMPRESSIONS #Sepsis 2/2 Multilobar Pneumonia and Urinary Tract Infection, maintaning MAP>65. #VELMA, ongoing #Moderate Right Hydronephrosis #H/o Waldenstrom Macroglobulinemia Plan: -DG To telemetry; episodes of bradycardia down to 40s. -Continue IV Ceftriaxone 1g and PO Azithromycin. -Blood cultures reporting no growth so far. -Urine and Sputum culture growing E. coli. -Trend Renal Function. -Continue steroid taper. Currently on 50 mg methylprednisolone q12. -Monitor H/H. If Hb <8, transfuse. DNR/DNI REG DIET PPT PPX: Subq Hep Problem List: 1. Sepsis 2. Bilateral pneumonia Pain Ratin Tomorrow's Labs & Rationales: cbc bep Plan DVT/Prophylaxis: mechanical
--- NOTE | 2018-05-14 10:43 | PN- Pulmonary ---
Subjective HPI/Critical Care Issues: Patient is comfortable without complaints he remains on room air Objective Current Medications: Current Medications Sig/Hilton Start time Last Medication Dose Route Stop Time Status Admin Acetaminophen 650 MG .STK-MED ONE 05/14 0118 DC PO 05/14 0119 Acetaminophen 1,000 MG Q6P PRN 05/11 2359 AC IV Acetaminophen 650 MG Q6P PRN 05/11 1915 AC 05/14 PO 0121 Azithromycin 500 MG 1800 05/12 1800 AC 05/13 PO 1749 Ceftriaxone Sodium 1,000 MG 1800 05/12 1800 AC 05/13 IV 1749 Furosemide 40 MG QAM 05/13 0901 AC 05/14 PO 0907 Heparin Sodium 5,000 UNIT Q8 05/11 2200 AC 05/14 (Porcine) SC 0545 Hydrocortisone 50 MG Q12 05/13 2100 AC 05/14 Sodium Succinate IV 0907 Omeprazole 40 MG DAILY AC 05/13 0902 AC 05/14 PO 0553 Tamsulosin HCl 0.4 MG QPM 05/13 2100 AC 05/13 PO 2026 Vital Signs & I&O Last 24 Hrs of Vitals and I&O: Vital Signs Date Time Temp Pulse Resp B/P B/P Pulse O2 O2 Flow FiO2 Mean Ox Delivery Rate 05/14 0830 98.6 61 20 120/58 98 Room Air 05/14 0600 98.0 70 16 118/58 96 Room Air 05/14 0000 96.7 76 18 116/60 95 Room Air 05/13 2027 97.7 88 20 112/588 05/13 1600 97.1 75 16 118/58 99 Room Air Intake & Output 05/14 1600 05/14 0800 05/14 0000 Intake Total 100 400 Output Total 900 1150 Balance -800 -750 Intake, Oral 100 400 Number 1 Bowel Movements Output, Urine 900 1150 Oxygen saturation room air 98% exam of his chest shows clear lung aparicio cardiac exam shows a regular S1 and S2 without murmurs abdomen is soft nontender Impression/Plan Impression/Plan Impression/Plan: 87-year-old with improved sepsis Recommendations: No active respiratory issues please call for further input
[2018-05-14 16:00] VITALS: BP 118/64
[2018-05-14 22:00] VITALS: BP 120/70
--- NOTE | 2018-05-15 07:30 | PN- Hematology ---
Subjective Subjective: Feeling better, no worsening shortness of breath or dysuria Objective Vital Signs and I&Os Vital Signs Date Time Temp Pulse Resp B/P B/P Pulse O2 O2 Flow FiO2 Mean Ox Delivery Rate 05/14 2200 97.8 74 16 120/70 97 Room Air 05/14 1906 62 05/14 1600 Room Air 05/14 1600 98.8 67 18 118/64 97 Room Air 05/14 0830 98.6 61 20 120/58 98 Room Air 05/14 0800 98 Room Air Intake & Output 05/15 0800 05/15 0000 05/14 1600 05/14 0800 05/14 0000 05/13 1600 Intake Total 50 1120 1091 619 864 9605 Output Total 3561 350 5558 900 1150 750 Balance -950 300 -109 -800 -750 290 Intake, IV 11 200 Intake, Oral 50 1120 1080 100 400 840 Number 3 1 1 1 Bowel Movements Output, Urine 9990 873 3038 900 1150 750 Patient 176 lb Weight Gen.: in NAD ENT: Sclera anicteric Chest: Normal respiratory effort, decreased breath sounds Cor: RRR, no extra sounds Abdomen: Soft, bowel sounds present, no tenderness, no rebound Extremities: Without clubbing, cyanosis, or asymmetric edema Neurology: Alert and oriented 3, no gross deficit Current Medications: Current Medications Sig/Hilton Start time Last Medication Dose Route Stop Time Status Admin Acetaminophen 650 MG .STK-MED ONE 05/14 1937 DC PO 05/14 193 Acetaminophen 1,000 MG Q6P PRN 05/11 2359 AC IV Acetaminophen 650 MG Q6P PRN 05/11 1915 AC 05/14 PO 0121 Azithromycin 500 MG 1800 05/12 1800 AC 05/14 PO 1905 Ceftriaxone Sodium 1,000 MG 1800 05/12 1800 AC 05/14 IV 1905 Furosemide 40 MG QAM 05/13 0901 AC 05/14 PO 0907 Heparin Sodium 5,000 UNIT Q8 05/11 2200 AC 05/15 (Porcine) SC 0614 Hydrocortisone 50 MG Q12 05/13 2100 05/14 Sodium Succinate IV 2145 Omeprazole 40 MG DAILY AC 05/13 0902 AC 05/15 PO 0614 Tamsulosin HCl 0.4 MG QPM 05/13 2100 05/14 PO 1906 Results Last 24 Hours of Lab Results: Laboratory Tests 05/15 615 Chemistry Sodium Pending Potassium Pending Chloride Pending Carbon Dioxide Pending Anion Gap Pending BUN Pending Creatinine Pending Glucose Pending Calcium Pending Phosphorus Pending Magnesium Pending Total Bilirubin Pending AST Pending ALT Pending Albumin Pending Hematology CBC w Diff Pending WBC Pending RBC Pending Hgb Pending Hct Pending MCV Pending MCH Pending MCHC Pending RDW Pending Plt Count Pending MPV Pending Assessment/Plan Hematology Assessment/Recommendations: 1. Waldenstrm's macroglobulinemia-clinically stable Recommend- Follow CBC Transfuse as outlined 2. Sepsis-stable, urinary tract infection documented Please call if any further issues develop during this hospitalization
[2018-05-15 08:00] VITALS: BP 112/60
[2018-05-15 08:04] LABS: ABSOLUTE BASOPHIL COUNT 0 /CUMM (0.0-0.2); ABSOLUTE EOSINOPHIL COUNT 0 /CUMM (0.0-0.7); ABSOLUTE GRANULOCYTE CT 2.9 /CUMM (1.4-6.5); ABSOLUTE LYMPH COUNT 1.6 /CUMM (1.2-3.4); ABSOLUTE MONOCYTE COUNT 0.5 /CUMM (0.10-0.60); BASOPHIL % 0.3 % (0.0-2.0); EOSINOPHIL % 0.4 % (0-5); GRANULOCYTE % 57.6 % (42.2-75.2); HEMATOCRIT 25.1 % (42-52); MEAN CORPUSCULAR HGB 30.3 PG (27.0-31.0); MEAN CORPUSCULAR VOLUME 91.6 FL (80.0-94.0); MEAN PLATELET VOLUME 8.8 FL (7.4-10.4); PLATELET COUNT 128 /CUMM (130-400); RBC DISTRIBUTION WIDTH 14.2 % (11.5-14.5); RED BLOOD CELL CT 2.74 /CUMM (4.70-6.10); WHITE BLOOD CELL COUNT 5.1 /CUMM (4.8-10.8)
--- NOTE | 2018-05-15 08:06 | PN- Resident CRCU ---
Subjective HPI/CRCU Issues: #Sepsis 2/2 Multilobar Pneumonia and Urinary Tract Infection, maintaning MAP>65. , resolving #VELMA, ongoing #Moderate Right Hydronephrosis #H/o Waldenstrom Macroglobulinemia 24 Hour Events: Pt seen and examined this am. He was pleasant, breathing comfortably on room air with sat 98%, with no acute complains. Objective Vital Signs & I&O Last 8 Hrs of Vitals and I&O: Intake & Output 05/15 1600 05/15 0800 05/15 0000 Intake Total 50 1120 Output Total 1000 820 Balance -950 300 Intake, Oral 50 1120 Number 3 Bowel Movements Output, Urine 1000 820 Patient 176 lb Weight Laboratory Tests 05/15 0615 Chemistry Sodium (137 - 145 mmol/L) 139 Potassium (3.5 - 5.1 mmol/L) 4.2 Chloride (98 - 107 mmol/L) 108 H Carbon Dioxide (22 - 30 mmol/L) 23 Anion Gap (5 - 16) 9 BUN (9 - 20 mg/dL) 28 H Creatinine (0.7 - 1.2 mg/dL) 1.3 H Estimated GFR (>60 ml/min) 52 L Glucose (65 - 99 mg/dL) 107 H Calcium (8.4 - 10.2 mg/dL) 8.6 Phosphorus (2.5 - 4.5 mg/dL) 2.9 Magnesium (1.6 - 2.3 mg/dL) 2.0 Total Bilirubin (0.2 - 1.3 mg/dL) 0.2 AST (17 - 59 U/L) 13 L ALT (21 - 72 U/L) 31 Albumin (3.5 - 5.0 g/dL) 2.5 L Hematology CBC w Diff NO MAN DIFF REQ WBC (4.8 - 10.8 /CUMM) 5.1 RBC (4.70 - 6.10 /CUMM) 2.74 L Hgb (14.0 - 18.0 G/DL) 8.3 L Hct (42 - 52 %) 25.1 L MCV (80.0 - 94.0 FL) 91.6 MCH (27.0 - 31.0 PG) 30.3 MCHC (33.0 - 37.0 G/DL) 33.0 RDW (11.5 - 14.5 %) 14.2 Plt Count (130 - 400 /CUMM) 128 L MPV (7.4 - 10.4 FL) 8.8 Gran % (42.2 - 75.2 %) 57.6 Lymphocytes % (20.5 - 51.1 %) 31.3 Monocytes % (1.7 - 9.3 %) 10.4 H Eosinophils % (0 - 5 %) 0.4 Basophils % (0.0 - 2.0 %) 0.3 Absolute Granulocytes (1.4 - 6.5 /CUMM) 2.9 Absolute Lymphocytes (1.2 - 3.4 /CUMM) 1.6 Absolute Monocytes (0.10 - 0.60 /CUMM) 0.5 Absolute Eosinophils (0.0 - 0.7 /CUMM) 0 Absolute Basophils (0.0 - 0.2 /CUMM) 0 Vital Signs Date Time Temp Pulse Resp B/P B/P Pulse O2 O2 Flow FiO2 Mean Ox Delivery Rate 05/15 0800 96 Room Air Room Air 05/15 0800 97.2 57 20 112/60 97 Room Air Room Air 05/14 2200 97.8 74 16 120/70 97 Room Air 05/14 1906 62 05/14 1600 Room Air 05/14 1600 98.8 67 18 118/64 97 Room Air Intake & Output 05/15 1600 05/15 0800 05/15 0000 Intake Total 50 1120 Output Total 1000 820 Balance -950 300 Intake, Oral 50 1120 Number 3 Bowel Movements Output, Urine 1000 820 Patient 176 lb Weight Exam General Appearance: well developed/nourished, no apparent distress, alert, awake , comfortable Head: atraumatic, normal appearance Neck: normal inspection, supple Respiratory: normal breath sounds, chest non-tender, no respiratory distress, lungs clear Cardiovascular: bradycardia, No m/r/g Gastrointestinal: normal bowel sounds, soft, non-tender, no organomegaly Extremities: normal inspection, normal capillary refill Cranial Nerves: normal hearing, normal speech Skin: intact, normal color Current Medications: Current Medications Sig/Hilton Start time Last Medication Dose Route Stop Time Status Admin Acetaminophen 650 MG .STK-MED ONE 05/14 1937 DC PO 05/14 1938 Acetaminophen 1,000 MG Q6P PRN 05/11 2359 AC IV Acetaminophen 650 MG Q6P PRN 05/11 191 AC 05/14 PO 0121 Azithromycin 500 MG 1800 05/12 1800 AC 05/14 PO 1905 Ceftriaxone Sodium 1,000 MG 1800 05/12 1800 AC 05/14 IV 1905 Furosemide 40 MG QAM 05/13 0901 AC 05/15 PO 0851 Heparin Sodium 5,000 UNIT Q8 05/11 2200 AC 05/15 (Porcine) SC 0614 Hydrocortisone 50 MG Q12 05/13 2100 05/15 Sodium Succinate IV 0851 Omeprazole 40 MG DAILY AC 05/13 0902 AC 05/15 PO 0614 Tamsulosin HCl 0.4 MG QPM 05/13 2100 AC 05/14 PO 1906 Impression/Plan Impression/Problem List Impression: Mr. 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 He was transferred to the ICU for close monitoring of BP s/p episodes of hypotension. IMPRESSIONS #Sepsis 2/2 Multilobar Pneumonia and Urinary Tract Infection, maintaning MAP>65. #VELMA, ongoing #Moderate Right Hydronephrosis #H/o Waldenstrom Macroglobulinemia Plan: -DG To telemetry or Gen Med should no tele events arise; -Continue IV Ceftriaxone 1g and PO Azithromycin. (Day #4) -Blood cultures reporting no growth so far. -Urine and Sputum culture growing E. coli. -Trend Renal Function. -Home prednisone started. 10 mg PO prednisone qD -Monitor H/H DNR/DNI REG DIET PPT PPX: Subq Hep Problem List: 1. Bilateral pneumonia 2. UTI (urinary tract infection) Pain Ratin Tomorrow's Labs & Rationales: . Plan DVT/Prophylaxis: mechanical
--- NOTE | 2018-05-15 08:33 | PN- CRCU ---
Subjective HPI/Critical Care Issues: The patient remains stable, 98% on room air. He offers no complaints. There were no overnight events reported. Objective Current Medications: Current Medications Sig/Hilton Start time Last Medication Dose Route Stop Time Status Admin Acetaminophen 650 MG .STK-MED ONE 05/14 1937 DC PO 05/14 1938 Acetaminophen 1,000 MG Q6P PRN 05/11 2359 AC IV Acetaminophen 650 MG Q6P PRN 05/11 1915 AC 05/14 PO 0121 Azithromycin 500 MG 1800 05/12 1800 AC 05/14 PO 1905 Ceftriaxone Sodium 1,000 MG 1800 05/12 1800 AC 05/14 IV 1905 Furosemide 40 MG QAM 05/13 0901 AC 05/14 PO 0907 Heparin Sodium 5,000 UNIT Q8 05/11 2200 AC 05/15 (Porcine) SC 0614 Hydrocortisone 50 MG Q12 05/13 2100 05/14 Sodium Succinate IV 2145 Omeprazole 40 MG DAILY AC 05/13 0902 AC 05/15 PO 0614 Tamsulosin HCl 0.4 MG QPM 05/13 2100 AC 05/14 PO 1906 Vital Signs & I&O Last 24 Hrs of Vitals and I&O: Vital Signs Date Time Temp Pulse Resp B/P B/P Pulse O2 O2 Flow FiO2 Mean Ox Delivery Rate 05/14 2200 97.8 74 16 120/70 97 Room Air 05/14 1906 62 05/14 1600 Room Air 05/14 1600 98.8 67 18 118/64 97 Room Air 05/14 0830 98.6 61 20 120/58 98 Room Air Intake & Output 05/15 1600 05/15 0800 05/15 0000 Intake Total 50 1120 Output Total 1000 820 Balance -950 300 Intake, Oral 50 1120 Number 3 Bowel Movements Output, Urine 1000 820 Patient 176 lb Weight Physical Exam General Appearance: well developed/nourished, no apparent distress, alert, awake , comfortable Head: atraumatic, normal appearance Eyes: Bilateral: normal appearance. Respiratory: normal breath sounds, chest non-tender, bibasilar crackles Cardiovascular: regular rate/rhythm Gastrointestinal: soft, non-tender Extremities: no edema, stasis venous changes in b/l LE Neurologic/Psych: awake, alert, oriented x 3 Skin: intact, normal color, warm/dry Impression/Plan Impression/Plan Impression/Plan: 1. Sepsis of urologic origin, blood and urine cultures positive for E. coli. 2. Multilobar pneumonia on imaging, with stable respiratory status, on room air. 3. Acute kidney injury -creatinine stable. 4. Anemia without evidence of bleeding. Hemoglobin appears stable. 5. Moderate Right Hydronephrosis -no urologic intervention planned at present. 6. History of Waldenstrom Macroglobulinemia. 7. Mild hyperchloremia. Recommendations: * Continue IV Ceftriaxone 1g daily. * Trend renal function, follow up AM labs. * Monitor I&Os. * Encourage free water intake. * Restart chronic steroids. * DVT Prophylaxis: SC Heparin. * Code Status: DNR/DNI. * Downgrade to gen Soma if no telemetry events. * Out of bed to chair, ambulate. * Continue all supportive care.
--- NOTE | 2018-05-15 15:55 | RADIOLOGY REPORT ---
EXAMINATION: XR MODIFIED BARIUM SWALLOW CLINICAL INFORMATION: Swallowing impairment. Evaluate. History of esophageal dilatations in the past. COMPARISON: None. TECHNIQUE: A modified barium swallow was performed with speech pathologist in attendance. Pur?e, honey thick, nectar thick, thin, bread, and cracker consistencies were given to the patient and the swallowing mechanism was observed fluoroscopically with several spot films taken using the last image hold feature. FLUOROSCOPY TIME: 3 minutes 8 seconds. FINDINGS: With all consistencies, the oropharyngeal phase of swallowing is normal. With all consistencies, there is transient penetration of contrast seen and with thin liquids, there is aspiration of contrast seen down to the level of the vocal cords. There is only intermittent and weak cough sensation to these episodes of penetration. The episode of aspiration was silent. Mild pooling of contrast is seen in the vallecula. IMPRESSION: Penetration with all consistencies and aspiration with thin liquid consistency seen with inconsistent sensation. Speech pathologist assessment issued separately.
[2018-05-15 16:00] VITALS: BP 108/64
[2018-05-15 22:37] VITALS: BP 100/48
--- NOTE | 2018-05-16 07:35 | PN- Resident CRCU ---
Subjective HPI/CRCU Issues: -Sepsis secondary to community-acquired pneumonia and urological origin as his urine culture and sputum culture were positive for Escherichia coli. -Acute kidney injury (improved) -History of Waldenstrm's macroglobulinemia -Moderate right hydronephrosis No overnight events, patient remained afebrile. Seen and examined this morning. He is on room air and maintaining saturation 93%. Patient reported having greenish colored phlegm and intermittent cough. He denied chest pain, palpitation, nausea, vomiting, fever, chills, diarrhea, constipation, abdominal pain and dysuria. 24 Hour Events: No overnight events. Remained afebrile and he was able to maintain saturation 93% on room air. Objective Vital Signs & I&O Last 8 Hrs of Vitals and I&O: Intake & Output 05/16 1600 Intake Total 50 Output Total 0 Balance 50 Intake, IV 0 Intake, Oral 50 Number 0 Bowel Movements Output, Urine 0 Exam General Appearance: well developed/nourished, no apparent distress, alert, awake Head: atraumatic, normal appearance Ears, Nose, Throat: normal pharynx Neck: normal inspection, supple Respiratory: no respiratory distress, B/L inspiratory crackles Cardiovascular: regular rate/rhythm Gastrointestinal: normal bowel sounds, soft, non-tender Extremities: b/l feet swelling grade 1-2 Cranial Nerves: normal hearing, normal speech, PERRL Skin: intact Skin Temp/Moisture Exam: Warm/Dry Sepsis Skin Exam (color): Normal for Ethnicity Current Medications: Current Medications Sig/Hilton Start time Last Medication Dose Route Stop Time Status Admin Acetaminophen 650 MG .STK-MED ONE 05/151 DC PO 05/15 222 Acetaminophen 1,000 MG Q6P PRN 05/11 2359 AC IV Acetaminophen 650 MG Q6P PRN 05/11 1915 AC 05/16 PO 1757 Azithromycin 500 MG 1800 05/12 1800 DC 05/16 PO 1756 Ceftriaxone Sodium 1,000 MG 1800 05/12 1800 DC 05/16 IV 1757 Furosemide 40 MG QAM 05/13 0901 AC 05/16 PO 0923 Heparin Sodium 5,000 UNIT Q8 05/11 2200 AC 05/16 (Porcine) SC 2118 Omeprazole 40 MG DAILY AC 05/13 0902 AC 05/16 PO 0608 Prednisone 10 MG DAILY 05/16 0900 AC 05/16 PO 0923 Tamsulosin HCl 0.4 MG 1700 05/16 1700 AC 05/16 PO 175 Tamsulosin HCl 0.4 MG QPM 05/13 2100 DC 05/15 PO 2022 Impression/Plan Impression/Problem List Impression: 87-year-old male with a past medical history of esophagitis, H pylori, melanoma s/p resection, [place] 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 He was transferred to the ICU for close monitoring of BP s/p episodes of hypotension. Since then patient is able to maintain his blood pressure and his off from IV fluids. He is eating drinking orally. Sepsis secondary to multilobar pneumonia and UTI: -Patient had positive sputum and urine cultures with Escherichia coli. On presentation patient was meeting criteria of sepsis. Patient was not able to maintain his blood pressure that's why he was transferred to ICU. His sepsis has been improved and he is able to maintain his blood pressure without any support. His lactic acid remained negative. -We will continue his ceftriaxone and azithromycin that will cover both UTI and community-acquired pneumonia. Today is day 5 with his antibiotics. -His urine strep and Legionella antigens remained negative. -His blood culture remained negative so far. -We will continue his prednisone 10 mg every day. -We will downgrade him to GEN med. Acute kidney injury:( improved) -Patient had acute kidney injury probably due to dehydration(pre renal azotemia) -His condition improved with IV hydration. -His creatinine level came back to normal. 1.2 creatinine today. -We will continue monitoring his input and output. -We will continue avoiding nephrotoxic medications. History of esophagitis: -We will continue omeprazole History of Waldenstrm's macroglobulinemia: -Continue following CBC, patient is clinically stable at this point. -Continue 10 mg prednisone every day History of heart failure with preserved ejection fraction: -Continue Lasix 40 mg every day DVT prophylaxis: Mechanical and subtenons heparin CODE STATUS: DNR/intubated Problem List: 1. Pneumonia 2. Sepsis 3. UTI (urinary tract infection) Pain Ratin Pain Location: none Tomorrow's Labs & Rationales: cbc/bep Plan DVT/Prophylaxis: mechanical
[2018-05-16 07:53] LABS: ABSOLUTE BASOPHIL COUNT 0 /CUMM (0.0-0.2); ABSOLUTE EOSINOPHIL COUNT 0 /CUMM (0.0-0.7); ABSOLUTE GRANULOCYTE CT 2.5 /CUMM (1.4-6.5); ABSOLUTE LYMPH COUNT 1.7 /CUMM (1.2-3.4); ABSOLUTE MONOCYTE COUNT 0.6 /CUMM (0.10-0.60); BASOPHIL % 0.1 % (0.0-2.0); EOSINOPHIL % 0.5 % (0-5); GRANULOCYTE % 51.9 % (42.2-75.2); HEMATOCRIT 26.1 % (42-52); MEAN CORPUSCULAR HGB 30.6 PG (27.0-31.0); MEAN CORPUSCULAR HGB CONC 33.6 G/DL (33.0-37.0); MEAN PLATELET VOLUME 8.8 FL (7.4-10.4); PLATELET COUNT 129 /CUMM (130-400); RBC DISTRIBUTION WIDTH 13.9 % (11.5-14.5); RED BLOOD CELL CT 2.87 /CUMM (4.70-6.10); WHITE BLOOD CELL COUNT 4.8 /CUMM (4.8-10.8)
[2018-05-16 08:00] VITALS: BP 112/52
--- NOTE | 2018-05-16 09:26 | PN- Pulmonary ---
Subjective HPI/Critical Care Issues: The patient is awake and alert. He reports feeling improved overall. He is afebrile. He denies any discomfort. He slept well. No events on telemetry. He there were no overnight events reported. Objective Current Medications: Current Medications Sig/Hilton Start time Last Medication Dose Route Stop Time Status Admin Acetaminophen 650 MG .STK-MED ONE 05/15 2221 DC PO 05/15 2222 Acetaminophen 650 MG .STK-MED ONE 05/15 1617 DC PO 05/15 1618 Acetaminophen 1,000 MG Q6P PRN 05/11 2359 AC IV Acetaminophen 650 MG Q6P PRN 05/11 1915 AC 05/15 PO 2226 Azithromycin 500 MG 1800 05/12 1800 AC 05/15 PO 1741 Ceftriaxone Sodium 1,000 MG 1800 05/12 1800 AC 05/15 IV 1741 Furosemide 40 MG QAM 05/13 0901 AC 05/15 PO 0851 Heparin Sodium 5,000 UNIT Q8 05/11 2200 AC 05/16 (Porcine) SC 0608 Hydrocortisone 50 MG Q12 05/13 2100 DC 05/15 Sodium Succinate IV 05/15 2200 202 Omeprazole 40 MG DAILY AC 05/13 0902 AC 05/16 PO 0608 Prednisone 10 MG DAILY 05/16 0900 AC PO Tamsulosin HCl 0.4 MG 1700 05/16 1700 AC PO Tamsulosin HCl 0.4 MG QPM 05/13 2100 DC 05/15 PO 202 Vital Signs & I&O Last 24 Hrs of Vitals and I&O: Vital Signs Date Time Temp Pulse Resp B/P B/P Pulse O2 O2 Flow FiO2 Mean Ox Delivery Rate 05/15 2237 98.2 72 18 100/48 94 Room Air 05/15 2023 81 112/50 05/15 1600 97.5 71 18 108/64 98 Room Air Room Air Intake & Output 05/16 1600 05/16 0800 05/16 0000 Intake Total 360 600 Output Total 725 200 Balance -365 400 Intake, Oral 360 600 Number 1 Bowel Movements Output, Urine 725 200 Physical Exam General Appearance: well developed/nourished, no apparent distress, alert, awake , comfortable Head: atraumatic, normal appearance Eyes: Bilateral: normal appearance. Respiratory: normal breath sounds, chest non-tender, bibasilar crackles Cardiovascular: regular rate/rhythm Gastrointestinal: soft, non-tender Extremities: no edema, stasis venous changes in b/l LE Neurologic/Psych: awake, alert, oriented x 3 Skin: intact, normal color, warm/dry Results Last 24 Hrs of Lab Results: Laboratory Tests 05/16/18 0610: Anion Gap 8, Estimated GFR 57 L, BUN/Creatinine Ratio 21.7, Magnesium 2.0, CBC w Diff NO MAN DIFF REQ, RBC 2.87 L, MCV 91.0, MCH 30.6, MCHC 33.6, RDW 13.9, MPV 8.8, Gran % 51.9, Lymphocytes % 35.2, Monocytes % 12.3 H, Eosinophils % 0.5 , Basophils % 0.1, Absolute Granulocytes 2.5, Absolute Lymphocytes 1.7, Absolute Monocytes 0.6, Absolute Eosinophils 0, Absolute Basophils 0 Impression/Plan Impression/Plan Impression/Plan: 1. Sepsis of urologic origin, blood and urine cultures positive for E. coli. 2. Multilobar pneumonia on imaging, with stable respiratory status, on room air. 3. Acute kidney injury -creatinine stable. 4. Anemia without evidence of bleeding. Hemoglobin appears stable. 5. Moderate Right Hydronephrosis -no urologic intervention planned at present. 6. History of [place] Macroglobulinemia. 7. Mild hyperchloremia. Recommendations: * Continue ceftriaxone. * Monitor I&Os. * Encourage free water intake. * Restart chronic steroids. * DVT Prophylaxis: SC Heparin. * Code Status: DNR/DNI. * Downgrade to [facility]. * Out of bed to chair, ambulate. * Continue all supportive care.
[2018-05-16 13:48] VITALS: BP 100/42
--- NOTE | 2018-05-16 15:30 | Transfer of Care Summary ---
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 He was transferred to the ICU for close monitoring of BP s/p episodes of hypotension. Since then patient is able to maintain his blood pressure and his off from IV fluids. He is eating drinking orally. Sepsis secondary to multilobar pneumonia and UTI: -Patient had positive sputum and urine cultures with Escherichia coli. On presentation patient was meeting criteria of sepsis. Patient was not able to maintain his blood pressure that's why he was transferred to ICU. His sepsis has been improved and he is able to maintain his blood pressure without any support. His lactic acid remained negative. -We will continue his ceftriaxone and azithromycin that will cover both UTI and community-acquired pneumonia. Today is day 5 with his antibiotics. -His urine strep and Legionella antigens remained negative. -His blood culture remained negative so far. -We will continue his prednisone 10 mg every day. -We will downgrade him to GEN med. Acute kidney injury:( improved) -Patient had acute kidney injury probably due to dehydration(pre renal azotemia) -His condition improved with IV hydration. -His creatinine level came back to normal. 1.2 creatinine today. -We will continue monitoring his input and output. -We will continue avoiding nephrotoxic medications. History of esophagitis: -We will continue omeprazole History of Waldenstrm's macroglobulinemia: -Continue following CBC, patient is clinically stable at this point. -Continue 10 mg prednisone every day History of heart failure with preserved ejection fraction: -Continue Lasix 40 mg every day DVT prophylaxis: Mechanical and subtenons heparin Assessment/Plan: Sepsis secondary to multilobar pneumonia and UTI: -Patient had positive sputum and urine cultures with Escherichia coli. On presentation patient was meeting criteria of sepsis. Patient was not able to maintain his blood pressure that's why he was transferred to ICU. His sepsis has been improved and he is able to maintain his blood pressure without any support. His lactic acid remained negative. -We will continue his ceftriaxone and azithromycin that will cover both UTI and community-acquired pneumonia. Today is day 5 with his antibiotics. -His urine strep and Legionella antigens remained negative. -His blood culture remained negative so far. -We will continue his prednisone 10 mg every day. -We will downgrade him to GEN med. Acute kidney injury:( improved) -Patient had acute kidney injury probably due to dehydration(pre renal azotemia) -His condition improved with IV hydration. -His creatinine level came back to normal. 1.2 creatinine today. -We will continue monitoring his input and output. -We will continue avoiding nephrotoxic medications. History of esophagitis: -We will continue omeprazole History of Waldenstrm's macroglobulinemia: -Continue following CBC, patient is clinically stable at this point. -Continue 10 mg prednisone every day History of heart failure with preserved ejection fraction: -Continue Lasix 40 mg every day DVT prophylaxis: Mechanical and subtenons heparin CODE STATUS: DNR/intubated
[2018-05-16 23:09] VITALS: BP 102/52
[2018-05-17 07:09] VITALS: BP 114/67
--- NOTE | 2018-05-17 07:27 | PN- Urology ---
Subjective Subjective: Feeling better. Transferred out of ICU Objective Vital Signs and I&Os Vital Signs Date Time Temp Pulse Resp B/P B/P Pulse O2 O2 Flow FiO2 Mean Ox Delivery Rate 05/17 07 97.9 57 20 114/67 99 Room Air 05/16 2309 98.0 62 20 102/52 95 Room Air 05/16 1754 118/60 05/16 1600 Room Air 05/16 1348 97.6 72 20 100/42 98 Room Air 05/16 1335 98 Room Air 05/16 0800 97.9 54 20 112/52 93 Room Air Intake & Output 05/17 0805/17 0000 05/16 1600 05/16 0800 05/16 0000 05/15 1600 Intake Total 120 490 50 360 600 600 Output Total 700 0 725 200 550 Balance 120 -210 50 -365 400 50 Intake, IV 10 0 Intake, Oral 120 480 50 360 600 600 Number 1 0 1 1 Bowel Movements Output, Urine 700 0 725 200 550 Patient 176 lb Weight No flank pain Urine and sputum cultures positive for E. coli Assessment/Plan Assessment/Plan Imp: 1. UTI 2. Indwelling ureteral stent evidently placed at DC after a procedure for urinary stone 3. Pneumonia Plan: 1. Continue abx 2. I will call urology at the DC so that they contact patient and arrange for f/u. He will need the ureteral stent removed or changed
--- NOTE | 2018-05-17 08:09 | PN- Housestaff ---
See Addendum Subjective Follow-up For: [place] Pneumonia Subjective: Afebrile overnight. Patient is tolerating his hospital stay and has no presents concerns of cough or shortness of breath. Patient states his breathing is fine. Patient uses a walker for ambulation and otherwise denies any dizziness or lightheadedness upon standing. Patient denies chest pain, dyspnea, abdominal pain, fevers, and chills. Patient has no new concerns as of today. Review of Systems Constitutional: Reports: see HPI. Objective Last 24 Hrs of Vital Signs/I&O Vital Signs Date Time Temp Pulse Resp B/P B/P Pulse O2 O2 Flow FiO2 Mean Ox Delivery Rate 05/17 1406 98.5 65 16 105/54 100 05/17 0709 97.9 57 20 114/67 99 Room Air 05/16 2309 98.0 62 20 102/52 95 Room Air 05/16 1754 118/60 05/16 1600 Room Air Intake & Output 05/17 1600 05/17 0800 05/17 0000 Intake Total 800 120 490 Output Total 1300 700 Balance -500 120 -210 Intake, IV 10 Intake, Oral 800 120 480 Number 1 Bowel Movements Output, Urine 1300 700 Physical Exam General Appearance: Alert, Oriented X3, Cooperative, No Acute Distress Skin: No Rashes, No Breakdown HEENT: Atraumatic, PERRLA Neck: Supple, No JVD Cardiovascular: Regular Rate, Normal S1, Normal S2 Lungs: Clear to Auscultation, Normal Air Movement Abdomen: Soft, No Tenderness Neurological: Uses a cane for ambulation at baseline Assessment/Plan Assessment: 87-year-old male with a past medical history of esophagitis, H pylori, melanoma s/p resection, [place] 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 He was transferred to the ICU for close monitoring of BP s/p episodes of hypotension. Since then patient is able to maintain his blood pressure and his off from IV fluids. He is eating drinking orally. Sepsis secondary to multilobar pneumonia and UTI: -Patient had positive sputum and urine cultures with Escherichia coli. On presentation patient was meeting criteria of sepsis. Patient was not able to maintain his blood pressure that's why he was transferred to ICU. His sepsis has been improved and he is able to maintain his blood pressure without any support. His lactic acid remained negative. -Previously on ceftriaxone and azithromycin for the past 5 days that covered both UTI and community-acquired pneumonia. -Consider transitioning to Augmentin PO as sensitivity is positive. -His urine strep and Legionella antigens remained negative. -His blood culture remained negative so far. -We will continue his prednisone 10 mg every day. -We will downgrade him to GEN med. Acute kidney injury:( improved) -Patient had acute kidney injury probably due to dehydration(pre renal azotemia) -His condition improved with IV hydration. -His creatinine level came back to normal. 1.2 creatinine yesterday 05/16. -We will continue monitoring his input and output. -We will continue avoiding nephrotoxic medications. History of esophagitis: -We will continue omeprazole History of Waldenstrm's macroglobulinemia: -Continue following CBC, patient is clinically stable at this point. -Continue 10 mg prednisone every day History of heart failure with preserved ejection fraction: -Continue Lasix 40 mg every day Problem List: 1. Pneumonia 2. Sepsis 3. UTI (urinary tract infection) Pain Ratin Pain Location: No pain noted on exam Pain Goal: Remain pain free Pain Plan: Continue current regimen, stay pain free Tomorrow's Labs & Rationales: None currently recommended Discharge Plan Discharge Disposition: home
[2018-05-17 14:06] VITALS: BP 105/54
--- NOTE | 2018-05-17 14:29 | Discharge Summary ---
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 He was transferred to the ICU for close monitoring of BP s/p episodes of hypotension. Since then patient is able to maintain his blood pressure and his off from IV fluids. He is eating drinking orally. Sepsis secondary to multilobar pneumonia and UTI: -Patient had positive sputum and urine cultures with Escherichia coli. On presentation patient was meeting criteria of sepsis. Patient was not able to maintain his blood pressure that's why he was transferred to ICU. His sepsis has been improved and he is able to maintain his blood pressure without any support. His lactic acid remained negative. -We continued his ceftriaxone and azithromycin that will cover both UTI and community-acquired pneumonia. -Discharged on Ciprofloxacin 750 mg PO BID Acute kidney injury:( improved) -Patient had acute kidney injury probably due to dehydration(pre renal azotemia) -His condition improved with IV hydration. -His creatinine level came back to normal. Latest Cr 1.1 05/18. History of Waldenstrm's macroglobulinemia: -Continue 10 mg prednisone every day History of heart failure with preserved ejection fraction: -Continue Lasix 40 mg every day Allergies: Coded Allergies: NSAIDS (Non-Steroidal Anti-Inflamma (PER PT DAUGHTER BAD KIDNEY 05/11/18) Disposition Summary Disposition Principal Diagnosis: Sepsis secondary to multilobar pneumonia and UTI Additional Diagnosis: VELMA Hx. of Waldenstrm's macroglobulinemia Hx. of heart failure with preserved ejection fraction Discharge Disposition: home or self care Discharge Instructions General Discharge Information Code Status: Do Not Resucitate/Intubat Patient's Diet: Full Diet, Ad pancho Patient's Activity: Resume routine activities, as tolerated Follow-Up Instructions/Appts: If having any symptoms of chest pain, shortness of breath, fevers, or chills notify PCP. Medications at Discharge Discharge Medications: Continue taking these medications: Pantoprazole Sodium (Pantoprazole Sodium) 40 MG TABLET. 1 Tablet ORAL DAILY Comments: Last Taken: 05/18/18 Time: 6:00 AM (PRILOSEC 40MG PO GIVEN) Potassium Chloride (Potassium Chloride) 10 MEQ TAB.ER.PRT 1 Tablet ORAL DAILY Comments: NOT GIVEN IN HOSPITAL Tamsulosin HCl (Flomax) 0.4 MG CAP.ER.24H 1 Capsule ORAL Every night Comments: Last Taken: 05/17/18 Time: 5:00 PM Furosemide (Lasix) 40 MG TABLET 1 Tablet ORAL Every Morning Comments: Last Taken: 05/18/18 Time: 9:00 AM Loperamide HCl (Loperamide) 2 MG CAPSULE 1 Capsule ORAL EVERY SIX HOURS as needed for DIARRHEA Comments: NOT GIVEN IN HOSPITAL Mirtazapine (Mirtazapine) 7.5 MG TABLET 0.5 Tablet ORAL Every night Comments: NOT GIVEN IN HOSPTIAL Prednisone (Prednisone) 10 MG TABLET 1 Tablet ORAL Every Morning Comments: Last Taken: 05/18/18 Time: 9:00 AM Albuterol Sulfate (Proair Hfa) 90 MCG HFA.AER.AD 2 Puff Inhale through mouth Q6H as needed for RESP. Comments: NOT GIVEN IN HOSPITAL Acetaminophen (Acetaminophen) 500 MG TABLET 2 Tablet ORAL Every night Comments: Last Taken: 04/17/18 Time: 4:00 AM Start taking the following new medications: Ciprofloxacin HCl (Ciprofloxacin HCl) 750 MG TABLET 1 Tablet ORAL TWICE DAILY Qty = 14 No Refills Instructions: Please take as instructed and complete course of antibiotics. Comments: NOT GIVEN IN HOSPITAL Copies To: Teja Carvajal MD Attending Review Statement Documenting Attending: Pablo Aguero MD Copies To: Teja Carvajal MD
--- NOTE | 2018-05-17 15:01 | Patient Discharge Instructions ---
Discharge Instructions General Discharge Information You were seen/treated for: Pneumonia Renal Failure Watch for these problems: If any shortness of breath or increased work of breathing contact your PCP Special Instructions: 1. Follow up with PCP within 7 days of discharge 2. Continue current medications as prescribed 3. Please complete course of antibiotics as prescribed Diet Continue normal diet: Yes Recommended Diet: Regular Activity Full Activity/No Limits: No Activity Self Limited: Yes Acute Coronary Syndrome Inclusion Criteria At DC or during hospital stay patient has or had the following: ACS DIAGNOSIS No Discharge Core Measures Meds if any: Prescribed or Continued at Discharge Meds if any: NOT Prescribed or Continued at Discharge Congestive Heart Failure Inclusion Criteria At DC or during hospital stay patient has or had the following: CHF DIAGNOSIS No Discharge Core Measures Meds if any: Prescribed or Continued at Discharge Meds if any: NOT Prescribed or Continued at Discharge Cerebrovascular accident Inclusion Criteria At DC or during hospital stay patient has or had the following: CVA/TIA Diagnosis No Discharge Core Measures Meds if any: Prescribed or Continued at Discharge Meds if any: NOT Prescribed or Continued at Discharge Venous thromboembolism Inclusion Criteria VTE Diagnosis No VTE Type NONE VTE Confirmed by (Test) NONE Discharge Core Measures - Per Current guidelines, there needs to be overlap - treatment for the first 5 days of Warfarin therapy. - If discharged on Warfarin prior to 5 days of - overlap therapy, the patient will need to be - assessed for post discharge needs including - *Post discharge parental anticoagulation - *Warfarin and/or parental anticoagulation education - *Follow up date to check INR post discharge At least 5 days overlap therapy as Inpatient No Meds if any: Prescribed or Continued at Discharge Note: Overlap Therapy is Warfarin and Anticoagulant Meds if any: NOT Prescribed or Continued at Discharge
[2018-05-17 20:59] VITALS: BP 100/48
[2018-05-17 21:44] VITALS: BP 100/48
[2018-05-18 06:43] VITALS: BP 90/42
--- NOTE | 2018-05-18 08:00 | PN- Housestaff ---
See Addendum Subjective Follow-up For: CA pneumonia Subjective: Afebrile overnight. Patient notes two bouts of diarrhea-like bowel movements overnight but denies any past or present abdominal pain within the last 24 hours. Patient notes he does have episodes of gas and bloating. Patient is eating and drinking normally. Patient is overally feeling good today and denies any complaints of chest pain, dyspnea, fevers, chills, and fatigue. Review of Systems Constitutional: Reports: see HPI. Objective Last 24 Hrs of Vital Signs/I&O Vital Signs Date Time Temp Pulse Resp B/P B/P Pulse O2 O2 Flow FiO2 Mean Ox Delivery Rate 05/18 0906 104/50 05/18 0643 97.6 67 20 90/42 97 05/17 2144 97.7 79 20 100/48 98 Room Air 05/17 2059 76 100/48 05/17 1712 66 108/56 05/17 1406 98.5 65 16 105/54 100 Intake & Output 05/18 1600 05/18 0800 05/18 0000 Intake Total 210 730 Output Total 200 725 Balance 10 5 Intake, IV 10 10 Intake, Oral 200 720 Number 2 Bowel Movements Output, Urine 200 725 Physical Exam General Appearance: Alert, Oriented X3, Cooperative, No Acute Distress HEENT: Atraumatic Neck: Supple, No JVD Cardiovascular: Regular Rate, Normal S1, Normal S2 Lungs: Clear to Auscultation, Normal Air Movement Abdomen: Soft, No Tenderness Extremities: No Edema, Normal Pulses Assessment/Plan Assessment: 87-year-old male with a past medical history of esophagitis, H pylori, melanoma s/p resection, 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 He was transferred to the ICU for close monitoring of BP s/p episodes of hypotension. Since then patient is able to maintain his blood pressure and his off from IV fluids. He is eating drinking orally. Sepsis secondary to multilobar pneumonia and UTI: -Patient had positive sputum and urine cultures with Escherichia coli. On presentation patient was meeting criteria of sepsis. Patient was not able to maintain his blood pressure that's why he was transferred to ICU. His sepsis has been improved and he is able to maintain his blood pressure without any support. His lactic acid remained negative. -Previously on ceftriaxone and azithromycin for the past 5 days that covered both UTI and community-acquired pneumonia and will continue on a PO medication on discharge -We will discharge on Ciprofloxacin 750 mg PO BID Acute kidney injury:( improved) -Patient had acute kidney injury probably due to dehydration(pre renal azotemia) -His condition improved with IV hydration. -His creatinine level came back to normal. 1.2 creatinine yesterday 05/16. -We will continue monitoring his input and output. -We will continue avoiding nephrotoxic medications. History of esophagitis: -We will continue omeprazole History of Waldenstrm's macroglobulinemia: -Continue 10 mg prednisone every day History of heart failure with preserved ejection fraction: -Continue Lasix 40 mg every day Problem List: 1. Sepsis 2. Bilateral pneumonia 3. UTI (urinary tract infection) Pain Ratin Pain Location: None elicted Pain Goal: Remain pain free Pain Plan: As above Tomorrow's Labs & Rationales: Routine labs As above Tomorrow's Labs & Rationales: Routine labs
[2018-05-18 08:27] LABS: ABSOLUTE BASOPHIL COUNT 0 /CUMM (0.0-0.2); ABSOLUTE EOSINOPHIL COUNT 0.3 /CUMM (0.0-0.7); ABSOLUTE GRANULOCYTE CT 3.5 /CUMM (1.4-6.5); ABSOLUTE LYMPH COUNT 2.3 /CUMM (1.2-3.4); ABSOLUTE MONOCYTE COUNT 0.8 /CUMM (0.10-0.60); BASOPHIL % 0.4 % (0.0-2.0); EOSINOPHIL % 4.2 % (0-5); GRANULOCYTE % 50.8 % (42.2-75.2); HEMATOCRIT 26.7 % (42-52); MEAN CORPUSCULAR HGB 30.4 PG (27.0-31.0); MEAN CORPUSCULAR HGB CONC 33.3 G/DL (33.0-37.0); MEAN CORPUSCULAR VOLUME 91.3 FL (80.0-94.0); MEAN PLATELET VOLUME 8.2 FL (7.4-10.4); PLATELET COUNT 167 /CUMM (130-400); RED BLOOD CELL CT 2.93 /CUMM (4.70-6.10); WHITE BLOOD CELL COUNT 6.9 /CUMM (4.8-10.8)
[2018-05-18 09:06] VITALS: BP 104/50
[2018-05-18] MEDS ORDERED: CIPROFLOXACIN750 M1 PO ×2 (13:35→14:09)
== END 2018-05-18 15:05 | DRG 871 ==
LOC: ERH 15:39 → ERHI 18:07 → 2NB 18:07 → CRI 18:07 → ENRESERV 05-12 04:58 → CRI 05-12 06:08 → ENTRNSPT 05-16 12:58 → EDTRNSPTSTS 05-16 13:11 → EDTRNSPT 05-16 13:11 → 2NB 05-16 13:46 → CMPTRNSPT 05-16 13:55 → 2NB 05-17 08:32 → ENTRNSPT 05-18 14:53 → EDTRNSPTSTS 05-18 14:58 → EDTRNSPT 05-18 14:58 → 2NB 05-18 15:05 → CMPTRNSPT 05-18 15:26
PROVIDERS: Internal Medicine; Physician Assistant Medical; Preventive Medicine Public Health & General Preventive Medicine; Student in an Organized Health Care Education/Training Program
PROC: 30233N1 Transfusion of Nonautologous Red Blood Cells into Peripheral Vein, Percutaneous Approach (ICD-10-PCS; principal; 2018-05-12)
DX: A41.51 Sepsis due to Escherichia coli [E. coli] (principal); J18.9 Pneumonia, unspecified organism; J18.1 Lobar pneumonia, unspecified organism; N39.0 Urinary tract infection, site not specified; N17.9 Acute kidney failure, unspecified; N13.30 Unspecified hydronephrosis; I50.30 Unspecified diastolic (congestive) heart failure; C88.0 Waldenstrom macroglobulinemia; K52.9 Noninfective gastroenteritis and colitis, unspecified; E86.0 Dehydration; J44.9 Chronic obstructive pulmonary disease, unspecified; N40.1 Benign prostatic hyperplasia with lower urinary tract symptoms; K44.9 Diaphragmatic hernia without obstruction or gangrene; D03.59 Melanoma in situ of other part of trunk; D03.39 Melanoma in situ of other parts of face; B96.20 Unspecified Escherichia coli [E. coli] as the cause of diseases classified elsewhere; Z66 Do not resuscitate
CPT/HCPCS: 2NBP; CCU; ERO; 36415; 36592; 71045; 74176; 74230; 81001; 82436; 86920; 87015; 87040; 87045; 87070; 87086; 87449; 87450; 87899; 87899-59; 93005; 93010; 93306; 96361; 96374; 97116-GO; 97161-GP; 97530-GO; 99291; J0131; J0456; J0696; J0713; J1644; J1720; J3370; J7040; J7512; P9016